=== PATIENT | female | born 1950 | race Two or more races ===

== ENCOUNTER 2017-04-19 13:25 | Emergency (ER) | payer BC, MEDICARE ==
[~2017-04-19] VITALS: Ht 152.4 cm; Wt 68.5 kg
[~2017-04-19 13:25] MED LIST: ALPR0.254 PO; ATOR1TAB PO; CARV25TA55 PO; DOCU-137 PO; FERR-20 PO; FURO20TA3 PO; LISI40TA PO; LOS50T PO; OMEP20CA74 OR
[2017-04-19 13:36] VITALS: BP 141/91
[2017-04-19] MEDS ORDERED: HYDROcodone-ACET 5/325MG TAB PO ONE (15:00)
[2017-04-19] MEDS ORDERED: KETOROLAC TROMETH 60MG/2ML VIAL IM ONE (15:00)
== END 2017-04-19 15:05 | disposition home or self-care (01) ==
LOC: ER 13:42
DX: S93.601A Unspecified sprain of right foot, initial encounter (principal); M19.90 Unspecified osteoarthritis, unspecified site; I10 Essential (primary) hypertension; I25.810 Atherosclerosis of coronary artery bypass graft(s) without angina pectoris; I25.2 Old myocardial infarction; W01.0XXA Fall on same level from slipping, tripping and stumbling without subsequent striking against object, initial encounter; Y93.89 Activity, other specified; Y99.8 Other external cause status; Y92.89 Other specified places as the place of occurrence of the external cause; Z88.6 Allergy status to analgesic agent; Z79.899 Other long term (current) drug therapy; Z87.440 Personal history of urinary (tract) infections; Z95.1 Presence of aortocoronary bypass graft
CPT/HCPCS: 73630; 99284; J1885

== ENCOUNTER 2018-02-14 08:25 | Emergency (ER) | payer MEDICARE, MEDICAID ==
[~2018-02-14] VITALS: Ht 152.4 cm; Wt 67.6 kg
[~2018-02-14 08:25] MED LIST changes: -DOCU-137 PO; +DOCU1CAP54 PO
[2018-02-14 09:01] VITALS: BP 130/91
[2018-02-14] MEDS ORDERED: ACETAMINOPHEN 325 MG TAB PO ONE (09:45)
== END 2018-02-14 09:52 | disposition home or self-care (01) ==
LOC: ER 08:25
DX: S01.01XA Laceration without foreign body of scalp, initial encounter (principal); I10 Essential (primary) hypertension; I25.810 Atherosclerosis of coronary artery bypass graft(s) without angina pectoris; M19.90 Unspecified osteoarthritis, unspecified site; I25.2 Old myocardial infarction; Z87.11 Personal history of peptic ulcer disease; Z87.440 Personal history of urinary (tract) infections; Z88.6 Allergy status to analgesic agent; W01.0XXA Fall on same level from slipping, tripping and stumbling without subsequent striking against object, initial encounter; Y93.01 Activity, walking, marching and hiking; Y92.098 Other place in other non-institutional residence as the place of occurrence of the external cause; Y99.8 Other external cause status
CPT/HCPCS: 12002; 70450

== ENCOUNTER 2018-02-17 18:48 | Emergency (ER) | payer MEDICARE, MEDICAID ==
[~2018-02-17] VITALS: Ht 152.4 cm; Wt 67.1 kg
[2018-02-17 19:58] VITALS: BP 147/81
[2018-02-17] MEDS ORDERED: ACETAMINOPHEN/CODEINE#3 (300/30mg) TAB PO ONE (20:45)
[2018-02-17] MEDS ORDERED: cefTRIAXone SOD 1,000 MG VL IM ONE (20:45)
[2018-02-17] MEDS ORDERED: LIDOCAINE 1% HCL (LOCAL ANESTH.) INJ 20ML MDV ONE (20:48)
== END 2018-02-17 21:15 | disposition home or self-care (01) ==
LOC: ER 18:50
DX: S01.01XD Laceration without foreign body of scalp, subsequent encounter (principal); M19.90 Unspecified osteoarthritis, unspecified site; I10 Essential (primary) hypertension; I25.2 Old myocardial infarction; I25.810 Atherosclerosis of coronary artery bypass graft(s) without angina pectoris; Z87.440 Personal history of urinary (tract) infections; Z87.11 Personal history of peptic ulcer disease; Z88.6 Allergy status to analgesic agent; W19.XXXD Unspecified fall, subsequent encounter
CPT/HCPCS: 96372; 99283; J0696; J2001

== ENCOUNTER 2025-02-12 17:52 | Inpatient (IN) | payer MEDICARE, MEDICAID ==
[~2025-02-12] VITALS: Ht 149.9 cm; Wt 61.3 kg
[~2025-02-12 17:52] MED LIST changes: +ATOR-47 PO; -ATOR1TAB PO; +DOCU1CAP46 PO; -DOCU1CAP54 PO; -FERR-20 PO; +FERR325T24 PO; -LISI40TA PO; +LISI40TA16 PO
[2025-02-12 18:58] LABS: Hematocrit 33.0 % (36.0-46.0); Hemoglobin 11.0 g/dL (12.2-16.2); Mean Corpuscular Hemoglobin 29.9 pg (28.0-32.0); Mean Corpuscular Volume 90.0 fL (80.0-100.0); Nucleated Red Blood Cells % 0.0 %
[2025-02-12 19:14] LABS: Alanine Aminotransferase 20 U/L (7-40); Albumin 4.1 g/dL (3.2-4.8); Alkaline Phosphatase 98 U/L (46-116); Anion Gap 10 (5-15); BUN/Creatinine Ratio 9.8 (10.0-20.0); Carbon Dioxide 22 mmol/L (20-31); Potassium 3.9 mmol/L (3.5-5.1); Total Protein 6.7 g/dL (5.7-8.2)
[2025-02-12 19:26] LABS: Bilirubin, Total 0.2 mg/dL (0.2-1.0); Blood Urea Nitrogen 27 mg/dL (9-23); Calcium 8.6 mg/dL (8.7-10.4); Chloride 113 mmol/L (98-107); Glucose 128 mg/dL (74-106); Sodium 145 mmol/L (136-145)
[2025-02-12] MEDS: HYDROcodone-ACET 5/325MG TAB PO ONE (20:16)
[2025-02-12] MEDS: SODIUM CHLORIDE 0.9% 1,000 ML IV ONE (20:30)
--- NOTE | 2025-02-12 20:31 | DVH ---
CLINICAL HISTORY: Left hip pain status post fall. TECHNIQUE: CT of the abdomen and pelvis was performed without intravenous contrast. This exam was performed according to our departmental dose optimization program. Up-to-date CT equipment and radiation dose reduction techniques are utilized as appropriate. CTDIvol: 8 mGy; DLP: 439.5 mGy-cm. COMPARISON: None available. FINDINGS: Lack of intravenous contrast limits assessment of the organs and vasculature. Within this limitation, the following assessment is made: Lower Chest: Lung Bases: Minimal dependent subsegmental atelectasis and/or scarring of the lung bases. Right lower lobe with a solid pulmonary nodule measuring 4 mm, which does not necessitate imaging follow-up based on Fleischner Society Pulmonary nodule recommendations. Severe 3-vessel calcific atherosclerosis of the coronary arteries. Abdomen and Pelvis: Liver: Unremarkable. Gallbladder: Unremarkable. Bile Ducts: Unremarkable. Pancreas: Unremarkable. Spleen: Unremarkable. Adrenal glands: Adrenal glands with hyperplasia without evidence of a discrete nodule. Kidneys/Ureters: Mild bilateral pelvocaliectasis without evidence of zain hydroureteronephrosis. Left kidney inferior pole with a punctate nonobstructing stone. No evidence of an obstructing urinary tract stone. Right kidney superior pole with a hyperdense cyst measuring 2.1 cm, which favors a hemorrhagic or proteinaceous cyst. Right inferior pole with a cyst measuring 3.5 cm. Left kidney inferior pole with a cyst measuring 2.3 cm with trace layering milk of calcium. Stomach: Unremarkable. Small and Large Bowel: Evidence of prior distal ileum partial resection with a patent anastomosis. No evidence of bowel obstruction or abnormal bowel wall thickening.. Appendix: Surgically absent. Vasculature: [id number] calcific atherosclerosis of the abdominal aorta and branches. No evidence of an abdominal aortic aneurysm. Lymph nodes: Unremarkable. Mesentery: No evidence of intraperitoneal free gas or liquid. Pelvic Organs: Unremarkable. Bladder: Unremarkable. Abdominal Wall: Unremarkable. Soft tissues: [id number] subcutaneous fat stranding along the left posterolateral hip. Bones: No acute or suspicious osseous abnormality. Degenerative related grade 1 anterolistheses of L3 on L4 and L4 on L5. Vkjpkevr-qk-bsogrh degenerative changes of the lumbar spine (with notable high-grade spinal canal stenoses from the L2-L3 through the L4-L5 levels). Mild degenerative changes of the sacroiliac joints. Focal benign-appearing lucent lesion of the right iliac bone measuring 2.1 cm Osseous structures are demineralized. Other: None. IMPRESSION: 1. No acute intra-abdominal or intrapelvic abnormality. 2. No acute fracture or dislocation of the left hip. 3. Mild bilateral pelvocaliectasis without evidence of zain hydroureteronephrosis. 4. Additional chronic findings as described.
--- NOTE | 2025-02-12 20:54 | ED.PDOC ---
Stan. trauma (HPI) HPI Comments HPI: Poor Historian. 74-year-old female brought in by ambulance from home status post mechanical fall from a standing position. Denies any head injury. Patient complains of left hip pain. Patient was unable to get up from the floor where she feels secondary to pain. Patient is not on blood thinners. Past Medical History: Coronary artery disease, diabetes, hypertension, hyperlipidemia, rectal cancer, chronic kidney disease stage 4 Past Surgical History: Colon resection, REVIEW OF SYSTEMS: CONSTITUTIONAL: Denies acute: fever, diaphoresis, chills, generalized weakness. HEAD: Denies acute: headache, photophobia Eyes: Denies acute: Double vision, vision loss, eye pain, eye discharge. EARS: Denies acute: tinnitus, hearing loss, ear discharge, ear pain, THROAT: Denies acute: sore throat, swelling, difficulty swallowing , pain with swallowing, change in voice. NECK: Denies acute: neck pain, neck swelling, stiff neck. HEART: Denies acute : chest pain, palpitations, LUNGS: Denies acute: SOB, wheezing, cough, hemoptysis ABDOMEN: Denies acute: abdominal pain, Nausea, Vomiting, diarrhea, melena , hematemesis, hematochezia SKIN: Denies acute: rash, redness, lesions, itchiness. EXTREMITIES: Denies acute: calf pain, numbness, tingling, weakness, Denies acute: Low back pain. Neuro: Denies acute: focal neurological deficit, motor or sensory focal neurological deficit, tremors, seizure like activity, confusion, dizziness, change in mental status, loss of bowel or bladder function, cauda equina like symptoms. : Denies acute: dysuria, hematuria, flank pain, increase in urinary frequency. PSYCH: Denies acute: hallucination, suicidal ideation, homicidal ideation. FEMALE: Denies acute: abnormal vaginal bleeding, foul odor, unusual discharge. PHYSICAL EXAM: General: ----moderate----acute distress, awake and alert. Head: normocephalic, atraumatic. No raccoon's eyes, no ralph sign. Neck: supple, trachea is midline, no swelling. Throat: Normal phonation. Eyes:, no erythema, no purulent discharge, no proptosis, no icterus. Heart: regular rate, regular rhythm, no significant murmur appreciated. Lungs: no apparent respiratory distress, Able to speak in full sentences. No wheezing, no rhonchi, no crackles. No stridors Clear to auscultation bilaterally. Abdomen: non tender to palpation, non distended, soft, no guarding, no rebound, + bowel sounds. Neuro: Awake, Alert, oriented to name, self, situation, follows commands GCS=15. Speech is normal. Skin: no petechia, no purpura, no cyanosis, non-pale, not jaundice. Lower extremities: --no - Pitting edema no deformity, no focal swelling, no calf TTP. Makes eye contact. moves all four extremities. Face: no apparent facial droop. Evaluation of the Area of complaint: Left posterior lateral hip focal tenderness to palpation with a minimal swelling. No apparent hematoma or redness. Patient is vascularly intact in the affected extremity. Sensory and motor are present. Pedal pulses are palpable. ED COURSE: DISCLAIMER: This medical document was created using an electronic medical record system with voice recognition software and computerized dictation system. Although this document has been carefully reviewed, there might still be some phonetic and typographical errors. Occasional wrong-word or "sound-alike" substitutions may have occurred due to the inherent limitations of voice recognition software. These areas are purely typographical due to imperfections of the software programs and do not reflect any compromise in the patient's medical care. Please read the chart carefully and recognize, using context, where these substitutions have occurred. Chief Complaint: Lower Extremity Time Seen by MD: 18:01 Primary Care Provider: ROBYN Reviewed notes: Allergies Allergies: Coded Allergies: Ibuprofen (Verified Adverse Reaction, Unknown, GI BLEED, 10/06/13) Home Meds Active Scripts Losartan Potassium (COZAAR TABLET) 50 Mg Tb, 1 TAB PO DAILY, #30 TAB 5 Refills Prov:SOILA MADDEN M.D. 10/09/13 Reported Medications Furosemide (Furosemide) 20 Mg Tab, 20 MG PO BIDD, MG 10/06/13 Alprazolam (Alprazolam) 0.25 Mg Tab, 1 TAB PO TID, #90 TAB 10/06/13 Lisinopril (Lisinopril) 40 Mg Tab, 40 MG PO DAILY for 30 Days, MG 10/06/13 Omeprazole (PRILOSEC) 20 Mg Cap, 40 MG OR DAILY, CAP 10/06/13 Carvedilol (Carvedilol) 25 Mg Tab, 1 TAB PO BID, #180 TAB 1 Refill 10/06/13 Atorvastatin Calcium (ATORVASTATIN CALCIUM) 80 Mg Tab, 1 TAB PO DAILY, #30 TAB 5 Refills 10/06/13 Ferrous Sulfate (Ferrous Sulfate) 325 Mg Tab, 325 MG PO BIDWM, MG 10/06/13 Docusate Sodium (DOCQLACE) 100 Mg Cap, 200 MG PO BID, CAP 10/06/13 Information Source: Patient Mode of Arrival: EMS Past Medical History PAST MEDICAL HISTORY: Arthritis, CAD, Cancer, HTN, NH, PUD, UTI'S Surgical History: CABG 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 TRUCK CATERER History Family History Family History: No family hx of Heart maye, No family hx of Lung maye Social History Smoker: Non-Smoker Alcohol: Denies ETOH Use Drugs: Denies Drug Use Lives In: Home X-Ray, Labs, Meds, VS Vital Signs Date Time Temp Pulse Resp B/P (MAP) Pulse Ox O2 Delivery O2 Flow Rate FiO2 02/12/25 18:45 97.9 71 14 168/64 (98) 95 97.9 02/12/25 17:58 98.8 72 18 185/87 100 98.8 Lab Test 02/12/25 18:50 Range/Units White Blood Count 9.6 4.4-10.8 10^3/uL Red Blood Count 3.67 L 4.0-5.20 10^6/uL Hemoglobin 11.0 L 12.2-16.2 g/dL Hematocrit 33.0 L 36.0-46.0 % Mean Corpuscular Volume 90.0 80.0-100.0 fL Mean Corpuscular Hemoglobin 29.9 28.0-32.0 pg Mean Corpuscular Hemoglobin Concent 33.3 32.0-36.0 g/dL Red Cell Distribution Width 14.8 H 11.8-14.3 % Platelet Count 203 140-450 10^3/uL Mean Platelet Volume 8.7 6.9-10.8 fL Neutrophils (%) (Auto) 83.5 H 37.0-80.0 % Lymphocytes (%) (Auto) 10.6 10.0-50.0 % Monocytes (%) (Auto) 5.0 0.0-12.0 % Eosinophils (%) (Auto) 0.4 0.0-7.0 % Basophils (%) (Auto) 0.5 0.0-2.0 % Neutrophils # (Auto) 8.0 1.6-8.6 10 ^3/uL Lymphocytes # (Auto) 1.0 0.4-5.4 10 ^3/uL Monocytes # (Auto) 0.5 0-1.3 10 ^3/uL Eosinophils # (Auto) 0 0-0.8 10 ^3/uL Basophils # (Auto) 0 0-0.2 10 ^3/uL Nucleated Red Blood Cells 0.0 % Sodium Level 145 136-145 mmol/L Potassium Level 3.9 3.5-5.1 mmol/L Chloride Level 113 H 98-107 mmol/L Carbon Dioxide Level 22 20-31 mmol/L Anion Gap 10 5-15 Blood Urea Nitrogen 27 H 9-23 mg/dL Creatinine 2.75 H 0.550-1.02 mg/dL Glomerular Filtration Rate Calc 18 >90 mL/min BUN/Creatinine Ratio 9.8 L 10.0-20.0 Serum Glucose 128 H 74-106 mg/dL Calcium Level 8.6 L 8.7-10.4 mg/dL Total Bilirubin 0.2 0.2-1.0 mg/dL Aspartate Amino Transferase (AST) 14 13-40 U/L Alanine Aminotransferase (ALT) 20 7-40 U/L Alkaline Phosphatase 98 46-116 U/L Total Protein 6.7 5.7-8.2 g/dL Albumin 4.1 3.2-4.8 g/dL Current Medications Medications (Trade) Dose Ordered Sig/Blake Route Start Time Stop Time Status Last Admin Sodium Chloride 1,000 ml @ 1,000 mls/hr Q1H ONCE IV 02/12/25 19:45 02/12/25 20:44 DC 02/12/25 20:30 Acetaminophen/ Hydrocodone Bitart ([place] 5/325MG Tab) 1 tab ONCE ONCE PO 02/12/25 19:45 02/12/25 19:46 DC 02/12/25 20:16 Departure 1 Departure Time of Disposition: 20:53 Impression: Primary Impression: Left hip pain Additional Impression: Fall BENEDICTO,KRYSTEN J DO Feb 12, 2025 20:54
[2025-02-12 21:06] VITALS: PULSE 73; RESP 15; O2SAT 97
[2025-02-12] MEDS: LABETALOL HCL 20 MG/4 ML VL IV ONE (21:30)
--- NOTE | 2025-02-12 22:36 | DVH ---
CLINICAL INDICATION: fall, pain TECHNIQUE: XYXY L FEMUR XRAY COMPARISON: None FINDINGS/IMPRESSION: : Impacted subcapital femoral neck fracture. Alignment is anatomic.
[2025-02-12] MEDS: fentaNYL CITRATE 100 MCG/2 ML VL IV ONE (23:21)
[2025-02-13] VITALS (7 sets, daily range): BP systolic 106–136; BP diastolic 72–83; PULSE 67–79; RESP 15–18; TEMP 97.6–98.1; O2SAT 93–97
--- NOTE | 2025-02-13 00:27 | ECG ---
[facility] Test Date: 2025-02-13 Test Time: 00:20:31 Pat Name: ALEXANDER RANDOLPH Department: [facility] ED Patient ID: [id number] Room: 0217 Gender: F Proofer Prepress: MALINAD : 1950 Requested By: DEANA STARR Order Number: [id number] Reading MD: Doron Gan Measurements Intervals [place] Rate: 64 P: 36 NM: 174 QRS: 39 QRSD: 96 T: 151 QT: 445 QTc: 459 Interpretive Statements Sinus rhythm LVH with secondary repolarization abnormality Electronically Signed On 02-13-2025 17:26:49 PST by Doron Gan Please click the below link to view image of tracing.
[2025-02-13] MEDS: MORPHINE SULFATE 4 MG/ML SYR/VIAL IV ONE (01:05)
[2025-02-13] MEDS ORDERED: MORPHINE SULFATE 4 MG/ML SYR/VIAL IV PRN (01:45)
[2025-02-13] MEDS: ACETAMINOPHEN 325 MG TAB PO SCH (02:28)
[2025-02-13] MEDS: ONDANSETRON HCL 4 MG/2 ML VIAL ONE (02:52)
[2025-02-13] MEDS: ONDANSETRON HCL 4 MG/2 ML VIAL IV ONE (02:53)
[2025-02-13] MEDS: LABETALOL HCL 20 MG/4 ML VL IV ONE (03:06)
--- NOTE | 2025-02-13 03:48 | DVH ---
INDICATION: KRISTAN TECHNIQUE: Multiple real-time sonographic images of the kidneys and bladder were obtained. COMPARISON: None FINDINGS: RIGHT kidney measures 11.5 cm in length with normal parenchymal echotexture and mildly diminished thickness. Complex appearing inferior pole cyst measures 3.9 x 3.5 x 3.0 cm. Moderate hydronephrosis. LEFT kidney measures 9.2 cm in length with normal parenchymal echotexture and mildly diminished thickness. Simple appearing inferior pole anechoic cyst measures 2.2 x 2.1 x 1.8 cm. 3 mm left inferior pole pelvocaliceal calculus. Moderate hydronephrosis. The urinary bladder is contracted, containing a Nunez catheter. IMPRESSION: 1. Moderate bilateral hydronephrosis and cortical thinning. 2. Complex appearing inferior pole right renal cyst measuring 3.9 cm. 3. Simple appearing left renal cyst. 4. Left inferior pole calculus.
--- NOTE | 2025-02-13 03:49 | DVHHPRES ---
History of Present Illness Resident Creating Document: GLADYS KOWALSKI RESIDENT History of Present Illness Adilene Dudley is a 74-year-old female with past medical history of CKD stage 4, rectal carcinoma in remission, diabetes mellitus, hypertension, CAD status post CABG, dyslipidemia presented to the hospital with complaints of left hip pain following mechanical fall. Patient was working in the garage when she slipped and fell forwards hitting her left hip on the ground. She felt a pop in the left hip, worsened pain and could not get up. Patient reports the pain to be 7/10 intensity, dull in quality and nonradiating. PMHx:CKD stage 4, rectal carcinoma in remission, diabetes mellitus, hypertension, CAD status post CABG, dyslipidemia PSHx: partial Colectomy Family history: coronary artery disease in father Social history: ex-smoker, 13 pack years. Lives with son Home medication: aspirin, atorvastatin, [place] Manjinder, sodium bicarbonate, ferrous sulfate, lisinopril, carvedilol, ranolazine, Farxiga, amlodipine, Lantus Allergic history: ibuprofen Review of Systems Review of Systems General: patient denies fever, fatigue, weaknes, sweating, any recent changes in appetite and weight HEENT: No headaches, visiual changes, hearing loss, tinnitus, nasal congestion and discharge, and sore throat. Cardiovascular: Denies chest pain, palpitations, dyspnea on exertion, orthopnea, or claudication. Respiratory: No cough, and wheezing. Gastrointestinal: Complaints of left hip pain Genitourinary: No dysuria, hematuria, discharge, frequency, urgency, nocturia, incontinence, and urinary retention. Endocrine: No heat or cold intolerance, polydipsia, polyuria, and polyphagia. Neurological: No dizziness, extremity weakness and numbness, tremors, gait disturbance, seizures, and memory impairment. Psychiatric: Denies depression, anxiety,or insomnia. Musculoskeletal: Denies neck pain, stiffness and swelling, back pain, muscle weakness, joint pain, stiffness, swelling, or limited range of motion. Skin: No rashes, itching, skin lesion, changes in hair, nail, skin texture and breast. Hematologic/Lymphatic: Denies easy bruising, bleeding tendencies, or lymph node enlargement. Allergies: Coded Allergies: Ibuprofen (Verified Adverse Reaction, Unknown, GI BLEED, 10/06/13) Medications Current Medications Medications Dose Ordered Sig/Blake Route Start Time Stop Time Status Last Admin Dose Admin Acetaminophen 650 mg Q6HR PO 02/13/25 01:15 02/13/25 02:28 650 MG Alprazolam 0.25 mg TID PO 02/13/25 06:00 Furosemide 20 mg BIDD PO 02/13/25 06:00 Nifedipine 90 mg DAILY PO 02/13/25 10:00 Carvedilol 12.5 mg Q12HR PO 02/13/25 10:00 Morphine Sulfate 4 mg Q4HR PRN IV 02/13/25 02:45 Acetaminophen/ Hydrocodone Bitart 1 tab Q6HP PRN PO 02/13/25 02:45 Insulin Glargine 20 units QAM SC 02/13/25 07:00 Aspirin 81 mg DAILY PO 02/13/25 10:00 Atorvastatin Calcium 80 mg HS PO 02/13/25 22:00 Sodium Bicarbonate 650 mg DAILY PO 02/13/25 10:00 Ferrous Sulfate 325 mg DAILY PO 02/13/25 10:00 Ranolazine 500 mg DAILY PO 02/13/25 10:00 Exam Vital Signs Vital Signs Date Time Temp Pulse Resp B/P (MAP) Pulse Ox O2 Delivery O2 Flow Rate FiO2 02/13/25 03:06 60 191/77 02/13/25 03:00 20 94 02/13/25 02:28 98.0 02/12/25 21:06 Room Air* 0 21 Exam General Appearance: Alert, Oriented X3, Cooperative, in acute distress HEENT: Atraumatic, PERRLA, EOMI, Mucous membrane moist/pink Respiratory: Clear to auscultation, Normal air movement Cardiovascular: Regular rate, Normal S1, Normal S2, No murmurs, no chest wall tenderness Abdominal: Normal bowel sounds, Soft, No tenderness, No hepatospenomegaly, No masses Extremities: tenderness in the left hip Skin: No rashes, No breakdown, No significant lesion Neuro: Normal gait, Normal speech, Strength at 5/5 X4 ext, Normal tone, Sensation intact, Cranial nerves 3-12 NL, Reflexes 2+ Psych/Mental Status: Mental status NL, Mood NL Labs/Xrays Labs Test 02/12/25 18:50 Range/Units White Blood Count 9.6 4.4-10.8 10^3/uL Red Blood Count 3.67 L 4.0-5.20 10^6/uL Hemoglobin 11.0 L 12.2-16.2 g/dL Hematocrit 33.0 L 36.0-46.0 % Mean Corpuscular Volume 90.0 80.0-100.0 fL Mean Corpuscular Hemoglobin 29.9 28.0-32.0 pg Mean Corpuscular Hemoglobin Concent 33.3 32.0-36.0 g/dL Red Cell Distribution Width 14.8 H 11.8-14.3 % Platelet Count 203 140-450 10^3/uL Mean Platelet Volume 8.7 6.9-10.8 fL Neutrophils (%) (Auto) 83.5 H 37.0-80.0 % Lymphocytes (%) (Auto) 10.6 10.0-50.0 % Monocytes (%) (Auto) 5.0 0.0-12.0 % Eosinophils (%) (Auto) 0.4 0.0-7.0 % Basophils (%) (Auto) 0.5 0.0-2.0 % Neutrophils # (Auto) 8.0 1.6-8.6 10 ^3/uL Lymphocytes # (Auto) 1.0 0.4-5.4 10 ^3/uL Monocytes # (Auto) 0.5 0-1.3 10 ^3/uL Eosinophils # (Auto) 0 0-0.8 10 ^3/uL Basophils # (Auto) 0 0-0.2 10 ^3/uL Nucleated Red Blood Cells 0.0 % Sodium Level 145 136-145 mmol/L Potassium Level 3.9 3.5-5.1 mmol/L Chloride Level 113 H 98-107 mmol/L Carbon Dioxide Level 22 20-31 mmol/L Anion Gap 10 5-15 Blood Urea Nitrogen 27 H 9-23 mg/dL Creatinine 2.75 H 0.550-1.02 mg/dL Glomerular Filtration Rate Calc 18 >90 mL/min BUN/Creatinine Ratio 9.8 L 10.0-20.0 Serum Glucose 128 H 74-106 mg/dL Calcium Level 8.6 L 8.7-10.4 mg/dL Total Bilirubin 0.2 0.2-1.0 mg/dL Aspartate Amino Transferase (AST) 14 13-40 U/L Alanine Aminotransferase (ALT) 20 7-40 U/L Alkaline Phosphatase 98 46-116 U/L Creatine Kinase 158 H 34-145 U/L Troponin I High Sensitivity 17 </=34 ng/L Total Protein 6.7 5.7-8.2 g/dL Albumin 4.1 3.2-4.8 g/dL SEPSIS Sepsis Screen Date sepsis recognized/suspect: Feb 12, 2025 Time Sepsis recognized/suspect: 1844 Recent Procedure: No On Antibiotic Therapy: No Respiratory Rate >20: No Heart Rate >90: No Temp<36 C (96.8 F) or >38.3 C: No SBP <90 or MAP <65 mmHG: No New Acute Mental Status Change: No Is the patient on CPAP, BIPAP,: No Physician Orders L Femur Xray (02/12/25 21:27) Urine Bacterial Culture (02/12/25 23:36) Admit (02/12/25 23:57) Oxygen By Nasal Cannula (02/12/25 23:57) Stat Ekg For Chest Pain (02/12/25 23:57) Notify Md Of Changes From Base (02/12/25 23:57) Emergency Dysrhythmia Protocol (02/12/25 23:57) Rhythm Strips Once Every Shift (02/12/25 23:57) Drug Screen (02/13/25 01:13) Urinalysis (02/13/25 01:13) Lipid Panel (02/13/25 01:13) Hemoglobin A1c (02/13/25 01:13) PTPTT (02/13/25 01:13) Chest Xray 1 View (02/13/25 01:13) B-Type Natriuretic Peptide (02/13/25 01:13) Echo 2d Mode Cardiac Dop (02/13/25 01:13) Acetaminophen Tablet (Tylenol Tablet) (02/13/25 01:15) Kidney (02/13/25 01:13) Urine Sodium (02/13/25 01:13) Urine Protein/Creatinine Ratio (02/13/25 ) Urine Protein (02/13/25 01:13) Alprazolam Tablet (Xanax Tablet) (02/13/25 06:00) Furosemide Tablet (Lasix Tablet) (02/13/25 06:00) Nifedipine Er (Procardia Xl (Time-Releas (02/13/25 10:00) Carvedilol Tablet (Coreg Tablet) (02/13/25 10:00) Morphine Sulfate Injection (02/13/25 02:45) Hydrocodone-Acet 10/325mg Tab ([place] 10/ (02/13/25 02:45) Insulin Lantus (Glargine) (Lantus) (02/13/25 07:00) Aspirin Enteric Coated Tablet (Ecotrin E (02/13/25 10:00) Atorvastatin (Lipitor) (02/13/25 22:00) Sodium Bicarb Tab (02/13/25 10:00) Ferrous Sulfate Tablet (02/13/25 10:00) Ranolazine (Ranexa Er) (02/13/25 10:00) Vital Signs Date Time Temp Pulse Resp B/P (MAP) Pulse Ox O2 Delivery O2 Flow Rate FiO2 02/13/25 03:06 60 191/77 02/13/25 03:00 63 20 136/62 (86) 94 02/13/25 02:49 204/90 02/13/25 02:28 98.0 02/13/25 02:25 205/81 02/13/25 01:05 68 17 209/95 02/13/25 01:00 68 17 209/95 (133) 96 02/13/25 00:20 64 02/12/25 23:48 62 02/12/25 23:21 187/74 02/12/25 23:05 69 187/74 02/12/25 23:00 65 24 187/74 (111) 98 02/12/25 21:30 73 198/76 02/12/25 21:06 73 15 97 Room Air* 0 21 02/12/25 21:01 98.3 73 18 198/76 (116) 97 98.3 Laboratory Tests Test 02/12/25 18:50 White Blood Count 9.6 10^3/uL (4.4-10.8) Medications Medications Dose Ordered Sig/Blake Route Start Time Stop Time Status Last Admin Dose Admin Acetaminophen 650 mg Q6HR PO 02/13/25 01:15 02/13/25 02:28 650 MG Acetaminophen/ Hydrocodone Bitart 1 tab ONCE ONCE PO 02/12/25 19:45 02/12/25 19:46 DC 02/12/25 20:16 1 TAB Amlodipine Besylate 10 mg ONCE ONCE PO 02/13/25 01:30 02/13/25 01:35 DC 02/13/25 02:25 10 MG Fentanyl Citrate 50 mcg ONCE ONCE IV 02/12/25 23:15 02/12/25 23:16 DC 02/12/25 23:21 50 MCG Labetalol HCl 5 mg ONCE ONCE IV 02/12/25 21:15 02/12/25 21:17 DC 02/12/25 21:30 5 MG Labetalol HCl 40 mg ONCE ONCE IV 02/13/25 02:45 02/13/25 02:46 DC 02/13/25 03:06 40 MG Morphine Sulfate 4 mg ONCE ONCE IV 02/13/25 01:00 02/13/25 01:01 DC 02/13/25 01:05 4 MG Nifedipine 90 mg ONCE ONCE PO 02/13/25 02:30 02/13/25 02:33 DC 02/13/25 02:49 90 MG Ondansetron HCl 4 mg ONCE ONCE IV 02/13/25 02:45 02/13/25 02:46 DC 02/13/25 02:53 4 MG Sodium Chloride 1,000 ml @ 1,000 mls/hr Q1H ONCE IV 02/12/25 19:45 02/12/25 20:44 DC 02/12/25 20:30 1,000 MLS/HR Assessment/Plan Assessment/Plan Assessment and plan Left femoral neck fracture Intractable left hip pain due to above left femur x-ray: Impacted subcapital femoral neck fracture. pain management KRISTAN on CKD due to VMN Stage 4 CKD Anemia due to CKD Creatinine 2.75, GFR 18 Renal ultrasound Urine sodium, urine creatinine, urine protein creatinine ratio Nephro consult as per primary team Hypertensive emergency Blood pressure 210/95 Nifedipine, carvedilol Obesity grade 1 Lifestyle modification type 2 diabetes mellitus Follow up blood glucose levels HbA1c Insulin Lantus Dyslipidemia Continue atorvastatin Follow lipid panel History of coronary artery disease EKG Troponin negative Follow up with PCP on discharge PUD prophylaxis: not needed DVT prophylaxis: None due to possible procedure Barriers to discharge: Medical diagnosis and managment in progress. Patient lives with family. Independent for ADL. PCP: Dr. Lozano Specialist Relevent To Admission: Orthopedics Case discussed with Dr. Temple. Code Status: Full Code. Complex patient care discussion needed. Spend total 35 minutes for bedside assessment, case discussion and management. Plan discussed with: Patient My Orders Orders - GLADYS KOWALSKI RESIDENT Procedure Category Date Status Time Drug Screen LAB 02/13/25 Logged 01:13 Urinalysis LAB 02/13/25 Uncollected 01:13 Lipid Panel LAB 02/13/25 Logged 01:13 Hemoglobin A1c LAB 02/13/25 Logged 01:13 PTPTT LAB 02/13/25 Logged 01:13 Chest Xray 1 View XY 02/13/25 Logged 01:13 B-Type Natriuretic LAB 02/13/25 Logged Peptide 01:13 Echo 2d Mode Cardiac US 02/13/25 Logged DOP 01:13 Acetaminophen Tablet PHA 02/13/25 In Process (Tylenol Tablet) 01:15 Kidney US 02/13/25 Resulted 01:13 Urine Sodium LAB 02/13/25 Logged 01:13 Urine LAB 02/13/25 Logged Protein/Creatinine Urine Protein LAB 02/13/25 Logged 01:13 Alprazolam Tablet PHA 02/13/25 In Process (Xanax Tablet) 06:00 Furosemide Tablet PHA 02/13/25 In Process (Lasix Tablet) 06:00 Nifedipine Er PHA 02/13/25 In Process (Procardia Xl 10:00 Insulin Lantus PHA 02/13/25 In Process (Glargine) (Lantus) 07:00 Aspirin Enteric PHA 02/13/25 In Process Coated Tablet 10:00 Atorvastatin (Lipitor) PHA 02/13/25 In Process 22:00 Sodium Bicarb Tab PHA 02/13/25 In Process 10:00 Ferrous Sulfate Tablet PHA 02/13/25 In Process 10:00 Ranolazine (Ranexa Er) PHA 02/13/25 In Process 10:00 Visit Coding STANDARD RES Billing Provider: GUSTAVO TEMPLE MD Date of Service if different f: Feb 12, 2025 Common Visit Codes: 62435-MEDDWHD INP/OBS CARE (HIGH) Secondary Visit Codes: 30803-MVOJDWPH CARE PLAN 30 MINUTES GLADYS KOWALSKI RESIDENT Feb 13, 2025 03:49 GUSTAVO TEMPLE MD Feb 13, 2025 14:46
[2025-02-13] MEDS: GABAPENTIN 300 MG CAP PO ONE (05:16)
[2025-02-13] MEDS: MORPHINE SULFATE 4 MG/ML SYR/VIAL IV PRN (05:18)
[2025-02-13 05:44] LABS: Triglycerides 122 mg/dL (< 150)
[2025-02-13 05:46] LABS: Cholesterol 129 mg/dL (< 200); HDL Cholesterol 50 mg/dL (40-59)
[2025-02-13 05:50] LABS: INR 1.09 (0.9-1.15); Partial Thromboplastin Time 25.9 SEC (24.5-34.5); Prothrombin Time 11.5 sec (9.3-11.8)
[2025-02-13] MEDS: FUROSEMIDE 20 MG TAB PO SCH (06:38)
--- NOTE | 2025-02-13 06:51 | DVH ---
CHEST RADIOGRAPH INDICATION: preop TECHNIQUE: Single frontal view of the chest was obtained COMPARISON: None FINDINGS: Lines and Tubes: None Lungs: Clear Pleura: No effusion. No pneumothorax. Cardiomediastinal contours: Unremarkable status post median sternotomy. Bones: Unremarkable IMPRESSION: 1. No acute cardiopulmonary disease.
[2025-02-13] MEDS: INSULIN LANTUS (GLARGINE) 1 /0.01ml (100units/ml) SC SCH (08:34)
[2025-02-13] MEDS: ALPRAZolam 0.25 MG TAB PO SCH (08:34)
[2025-02-13] MEDS ORDERED: CARVEDILOL 3.125 MG TAB PO SCH (10:00)
[2025-02-13] MEDS: CARVEDILOL 3.125 MG TAB PO SCH (10:00)
[2025-02-13] MEDS: SODIUM BICARBONATE 650 MG TAB PO SCH (10:49)
[2025-02-13] MEDS: FERROUS SULFATE 325mg EC TAB PO SCH (10:49)
[2025-02-13] MEDS: ASPirin-EC 81 mg tab PO SCH (10:50)
[2025-02-13] MEDS: RANOLAZINE ER 500 MG TAB PO SCH (10:51)
--- NOTE | 2025-02-13 11:56 | DVHPNRES ---
Progress Note Date Seen: Feb 13, 2025 Resident Creating Document: MICHAEL PEDERSON RESIDENT Medical Necessity Reason Pt with a Central, PICC or Fol: Yes Subjective Review of Systems This is a 74 year old female with past medical history of CKD stage 4, rectal carcinoma status post treatment(radiation, surgery, chemotherapy), dm 2, HTN CAD status post CABG in 2009 [facility], HLD seizure came to ER with a complaint of left hip pain following mechanical fall. Patient stated she went to her garage tripped on the floor landed on left side of the body and suddenly started vein which is 9/10 intensity, localized, dull in consistency, nonradiating, aggravated on movement, no relieving factors. Evaluation in ER, patient having left hip pain and Nunez catheter placed. Currently denies any fever, SOB, chest pain, headache, abdominal pain, dysuria or any focal weakness. PMHx:CKD stage 4, rectal carcinoma in remission, diabetes mellitus, hypertension, CAD status post CABG, dyslipidemia PSHx: CABG 2009 Family history: coronary artery disease in father Social history: ex-smoker, 13 pack years. Lives with son Allergic history: ibuprofen PCP: Dr. Lozano Home medication: aspirin, atorvastatin, Delta Manjinder, sodium bicarbonate, ferrous sulfate, lisinopril, carvedilol, ranolazine, Farxiga, amlodipine, Lantus Objective vital signs Vital Sign Date Time Temp Pulse Resp B/P (MAP) Pulse Ox O2 Delivery O2 Flow Rate FiO2 02/13/25 10:52 64 14 133/59 02/13/25 08:00 95 02/13/25 08:00 Room Air* 0 21 02/13/25 05:00 98.5 98.5 medications Current Medications Medications Dose Ordered Sig/Blake Route Start Time Stop Time Status Last Admin Dose Admin Acetaminophen 650 mg Q6HR PO 02/13/25 01:15 02/13/25 08:28 650 MG Alprazolam 0.25 mg TID PO 02/13/25 06:00 Furosemide 20 mg BIDD PO 02/13/25 06:00 Nifedipine 90 mg DAILY PO 02/13/25 10:00 Carvedilol 12.5 mg Q12HR PO 02/13/25 10:00 Morphine Sulfate 4 mg Q4HR PRN IV 02/13/25 02:45 02/13/25 10:20 4 MG Acetaminophen/ Hydrocodone Bitart 1 tab Q6HP PRN PO 02/13/25 02:45 Insulin Glargine 20 units QAM SC 02/13/25 07:00 Aspirin 81 mg DAILY PO 02/13/25 10:00 Atorvastatin Calcium 80 mg HS PO 02/13/25 22:00 Sodium Bicarbonate 650 mg DAILY PO 02/13/25 10:00 Ferrous Sulfate 325 mg DAILY PO 02/13/25 10:00 Ranolazine 500 mg DAILY PO 02/13/25 10:00 Examination General Appearance: Alert, Oriented X3, Cooperative, in acute distress HEENT: Atraumatic, PERRLA, EOMI, Mucous membrane moist/pink Respiratory: Clear to auscultation, Normal air movement Cardiovascular: Regular rate, Normal S1, Normal S2, No murmurs, no chest wall tenderness Abdominal: Normal bowel sounds, Soft, No tenderness, No hepatospenomegaly, F oley catheter in place. Extremities: tenderness in the left hip Skin: No rashes, No breakdown, No significant lesion Neuro: Normal gait, Normal speech, Strength at 5/5 X4 ext, Normal tone, Sensation intact, Cranial nerves 3-12 NL, Reflexes 2+ Psych/Mental Status: Mental status NL, Mood NL laboratory and microbiology Laboratory Tests 02/12/25 18:50 Test 02/12/25 18:50 Range/Units Serum Glucose 128 H 74-106 mg/dL Problem List/Assessment/Plan Problem List/Assessment/Plan Impacted subcapital femoral neck fracture Intractable left hip pain due to above History of fall left femur x-ray: Impacted subcapital femoral neck fracture. pain management Ortho consult CT left femur ordered. KRISTAN on CKD due to VMN Stage 4 CKD Anemia due to CKD Bilateral hydronephrosis Likely complex cyst right kidney measuring 3.9 cm Left renal calculus Left renal simple cyst Creatinine 2.75, GFR 18 Renal ultrasound : Moderate bilateral hydronephrosis with cortical thinning, bilateral renal cyst, left inferior pole calculus. CT abdomen: Mild bilateral pelvocaliectasis without evidence of zain hydroureteronephrosis. Urine sodium, urine creatinine, urine protein creatinine ratio Nephro consult Hypertensive emergency Blood pressure 210/95 Nifedipine, carvedilol BP monitor Target blood pressure less than 130/80 Type 2 diabetes mellitus Follow up blood glucose levels HbA1c 6.2 Insulin Lantus Dyslipidemia Continue atorvastatin Follow lipid panel History of coronary artery disease s/p CABG 2009 Hypertensive heart disease possible systolic/dilated systolic heart failure Troponin 17 BNP 336.89 Ranolazine Nifedipine Furosemide carvedilol Atorvastatin Aspirin Nitroglycerin sublingually as needed History of colorectal cancer on remission. PUD prophylaxis: not needed DVT prophylaxis: SCD Barriers to discharge: Medical diagnosis and managment in progress. Patient lives with family. Independent for ADL. Goals of care decision. More than 21 minute spent with patient. Spoke NOK(sister-Kacey) updated current condition and treatment plan. Case discussed with Dr. Temple. Plan discussed with: Patient, Other (Nurse) My Orders My Orders Orders - MICHAEL PEDERSON Procedure Category Date Status Time * Orthopedic Consult CONS 02/13/25 Transmitted 11:10 Visit Coding STANDARD RES Billing Provider: GUSTAVO TEMPLE MD Date of Service if different f: Feb 13, 2025 Common Visit Codes: [id number] INP/OBS CARE (HIGH) Secondary Visit Codes: 99997-[id number] CARE PLAN 30 MINUTES MICHAEL PEDERSON RESIDENT Feb 13, 2025 11:56
[2025-02-13 15:52] LABS: Protein, Urine 56.4 mg/dL (1-14); Protein, Urine 56.9 mg/dL (1-14)
[2025-02-13 16:02] LABS: Sodium 145 mmol/L (136-145)
[2025-02-13 16:03] LABS: Amphetamine Screen, Urine Neg (NEGATIVE); Barbiturate Scree,Urine Neg (NEGATIVE); Benzodiazephine Screen, Urine Neg (NEGATIVE); Cannabinoid Screen, Urine Neg (NEGATIVE); Cocaine Screen, Urine Neg (NEGATIVE); Opiate Scree,Urine Neg (NEGATIVE)
[2025-02-13 16:03] LABS: Anion Gap 11 (5-15)
[2025-02-13 16:04] LABS: Calcium 8.0 mg/dL (8.7-10.4); Carbon Dioxide 19 mmol/L (20-31); Chloride 115 mmol/L (98-107)
[2025-02-13 16:05] LABS: Potassium 4.0 mmol/L (3.5-5.1)
[2025-02-13 16:11] LABS: BUN/Creatinine Ratio 9.4 (10.0-20.0); Blood Urea Nitrogen 22 mg/dL (9-23); Glucose 125 mg/dL (74-106)
[2025-02-13 16:54] LABS: Phencyclidine Screen, Urine Neg (NEGATIVE)
--- NOTE | 2025-02-13 17:38 | DVH ---
EXAM: CT CT L FEMUR WO CONTRAST INDICATION: X-ray shows Left Femoral neck fracture. TECHNIQUE: Axial images of left femur without contrast have been obtained along with coronal and sagittal reformatted images. All CT scans at this facility use dose modulation, iterative reconstruction, and/or weight based dosing when appropriate to reduce radiation dose to as low as reasonably achievable. COMPARISON: XY L FEMUR XRAY on DOS: 02/12/25 FINDINGS: BONES: Impacted nondisplaced left femoral subcapital neck fracture without significant displacement. Degenerative change of the left knee. Vascular calcifications. [id number] degenerative change of the pubic symphysis. Mild suspected degenerative change with chondrocalcinosis of the left hip. MUSCLES: No abnormal attenuation. JOINT SPACES: Chondrocalcinosis of the medial and lateral menisci of the left knee with [id number] medial weight-bearing compartment joint space loss. TENDONS/LIGAMENTS: Quadriceps insertional enthesophyte. OTHER: Nunez catheter in place. Postsurgical changes in the lower rectum. Fbtd-yw-jwdgckod stool burden. Subcutaneous adipose tissue edema likely compatible with soft tissue contusion of the left lateral thigh IMPRESSION: 1. Impacted nondisplaced left femoral subcapital neck fracture. 2. Degenerative change of the left knee.
[2025-02-13] MEDS: ATORVASTATIN 20 MG TAB PO SCH (21:28)
[2025-02-14] VITALS (23 sets, daily range): BP systolic 96–163; BP diastolic 61–90; PULSE 61–102; RESP 12–92; TEMP 96.8–97.9; O2SAT 92–100
[2025-02-14 05:58] LABS: Hematocrit 34.7 % (36.0-46.0); Hemoglobin 11.6 g/dL (12.2-16.2); Mean Corpuscular Hemoglobin 30.3 pg (28.0-32.0); Mean Corpuscular Volume 90.9 fL (80.0-100.0); Nucleated Red Blood Cells % 0.0 %
[2025-02-14 06:22] LABS: Anion Gap 10 (5-15); Carbon Dioxide 20 mmol/L (20-31); Potassium 4.0 mmol/L (3.5-5.1); Sodium 141 mmol/L (136-145)
[2025-02-14 06:23] LABS: Calcium 8.8 mg/dL (8.7-10.4)
[2025-02-14 06:28] LABS: BUN/Creatinine Ratio 10.0 (10.0-20.0)
[2025-02-14 06:32] LABS: Blood Urea Nitrogen 26 mg/dL (9-23); Chloride 111 mmol/L (98-107); Glucose 135 mg/dL (74-106)
--- NOTE | 2025-02-14 07:44 | DVHINCON2 ---
Date of service: Feb 13, 2025 Reason for Consultation Left hip fracture History of Present Illness 74 yo F with mechanical trip and fall onto left side. Immediate pain/inability to bear weight on left leg. No cp/sob/abd pain/nausea/vomiting. Past Medical History PMHx:CKD stage 4, rectal carcinoma in remission, diabetes mellitus, hypertension, CAD status post CABG, dyslipidemia PSHx: partial Colectomy Family history: coronary artery disease in father Social history: ex-smoker, 13 pack years. Lives with son Home medication: aspirin, atorvastatin, Peterson Manjinder, sodium bicarbonate, ferrous sulfate, lisinopril, carvedilol, ranolazine, Farxiga, amlodipine, Lantus Allergic history: ibuprofen Family History: Patient reports no known family medical history. Allergies: Coded Allergies: Ibuprofen (Verified Adverse Reaction, Unknown, GI BLEED, 10/06/13) Home Meds Active Scripts Losartan Potassium (COZAAR TABLET) 50 Mg Tb, 1 TAB PO DAILY, #30 TAB 5 Refills Prov:SOILA MADDEN M.D. 10/09/13 Reported Medications Furosemide (Furosemide) 20 Mg Tab, 20 MG PO BIDD, MG 10/06/13 Alprazolam (Alprazolam) 0.25 Mg Tab, 1 TAB PO TID, #90 TAB 10/06/13 Lisinopril (Lisinopril) 40 Mg Tab, 40 MG PO DAILY for 30 Days, MG 10/06/13 Omeprazole (PRILOSEC) 20 Mg Cap, 40 MG OR DAILY, CAP 10/06/13 Carvedilol (Carvedilol) 25 Mg Tab, 1 TAB PO BID, #180 TAB 1 Refill 10/06/13 Atorvastatin Calcium (ATORVASTATIN CALCIUM) 80 Mg Tab, 1 TAB PO DAILY, #30 TAB 5 Refills 10/06/13 Ferrous Sulfate (Ferrous Sulfate) 325 Mg Tab, 325 MG PO BIDWM, MG 10/06/13 Docusate Sodium (DOCQLACE) 100 Mg Cap, 200 MG PO BID, CAP 10/06/13 Current Medications Current Medications Medications (Trade) Dose Ordered Sig/Blake Route PRN Reason Start Time Stop Time Status Last Admin Amlodipine Besylate (Norvasc Tablet) 10 mg DAILY PO 02/13/25 10:00 02/13/25 02:29 DC Carvedilol (Coreg Tablet) 6.25 mg Q12HR PO 02/13/25 10:00 02/13/25 02:41 DC Nifedipine (Procardia Xl (Time-Release)) 90 mg DAILY PO 02/13/25 10:00 Carvedilol (Coreg Tablet) 12.5 mg Q12HR PO 02/13/25 10:00 02/13/25 21:30 Aspirin (Ecotrin Enteric Coated Tablet) 81 mg DAILY PO 02/13/25 10:00 Atorvastatin Calcium (Lipitor) 80 mg HS PO 02/13/25 22:00 02/13/25 21:28 Sodium Bicarbonate 650 mg DAILY PO 02/13/25 10:00 Ferrous Sulfate 325 mg DAILY PO 02/13/25 10:00 Ranolazine (Ranexa ER) 500 mg DAILY PO 02/13/25 10:00 Review of Systems 10 point ROS as per HPI Vital Signs Vital Signs Date Time Temp Pulse Resp B/P (MAP) Pulse Ox O2 Delivery O2 Flow Rate FiO2 02/14/25 05:00 97.4 17 122/69 (86) 99 97.4 02/14/25 01:00 74 02/13/25 20:00 Room Air* 0 21 Physical Exam NAD LLE: No shortening note +ta/gs/ehl/fhl foot wwp Labs/Diagnostic Data Labs Test 02/14/25 05:15 02/13/25 08:21 02/13/25 05:07 02/12/25 23:36 Range/Units White Blood Count 7.3 4.4-10.8 10^3/uL Red Blood Count 3.82 L 4.0-5.20 10^6/uL Hemoglobin 11.6 L 12.2-16.2 g/dL Hematocrit 34.7 L 36.0-46.0 % Mean Corpuscular Volume 90.9 80.0-100.0 fL Mean Corpuscular Hemoglobin 30.3 28.0-32.0 pg Mean Corpuscular Hemoglobin Concent 33.3 32.0-36.0 g/dL Red Cell Distribution Width 15.3 H 11.8-14.3 % Platelet Count 197 140-450 10^3/uL Mean Platelet Volume 9.3 6.9-10.8 fL Neutrophils (%) (Auto) 83.7 H 37.0-80.0 % Lymphocytes (%) (Auto) 10.0 10.0-50.0 % Monocytes (%) (Auto) 4.3 0.0-12.0 % Eosinophils (%) (Auto) 1.9 0.0-7.0 % Basophils (%) (Auto) 0.1 0.0-2.0 % Neutrophils # (Auto) 6.1 1.6-8.6 10 ^3/uL Lymphocytes # (Auto) 0.7 0.4-5.4 10 ^3/uL Monocytes # (Auto) 0.3 0-1.3 10 ^3/uL Eosinophils # (Auto) 0.1 0-0.8 10 ^3/uL Basophils # (Auto) 0 0-0.2 10 ^3/uL Nucleated Red Blood Cells 0.0 % Sodium Level 141 136-145 mmol/L Potassium Level 4.0 3.5-5.1 mmol/L Chloride Level 111 H 98-107 mmol/L Carbon Dioxide Level 20 20-31 mmol/L Anion Gap 10 5-15 Blood Urea Nitrogen 26 H 9-23 mg/dL Creatinine 2.61 H 0.550-1.02 mg/dL Glomerular Filtration Rate Calc 19 >90 mL/min BUN/Creatinine Ratio 10.0 10.0-20.0 Serum Glucose 135 H 74-106 mg/dL Calcium Level 8.8 8.7-10.4 mg/dL POC Glucose 99 70-106 mg/dl Prothrombin Time 11.5 9.3-11.8 sec Prothrombin Time INR 1.09 0.9-1.15 Activated Partial Thromboplast Time 25.9 24.5-34.5 SEC Hemoglobin A1c 6.2 H <5.7 % A1C B-Type Natriuretic Peptide 336.89 0-100 pg/mL Triglycerides Level 122 < 150 mg/dL Cholesterol Level 129 < 200 mg/dL LDL Cholesterol 61 < 100 mg/dL HDL Cholesterol 50 40-59 mg/dL Urine Creatinine 22.78 L 30.0-125.0 mg/dL Urine Protein/Creatinine Ratio 2.50 Urine Sodium 131 40-220 mmol/L Urine Total Protein 56.9 H 1-14 mg/dL Urine Opiates Screen Neg NEGATIVE Urine Fentanyl Screen Neg NEGATIVE Urine Barbiturates Screen Neg NEGATIVE Urine Phencyclidine Screen Neg NEGATIVE Urine Amphetamines Screen Neg NEGATIVE Urine Benzodiazepines Screen Neg NEGATIVE Urine Cocaine Screen Neg NEGATIVE Urine Cannabinoids Screen Neg NEGATIVE Test 02/12/25 18:50 Range/Units Total Bilirubin 0.2 0.2-1.0 mg/dL Aspartate Amino Transferase (AST) 14 13-40 U/L Alanine Aminotransferase (ALT) 20 7-40 U/L Alkaline Phosphatase 98 46-116 U/L Creatine Kinase 158 H 34-145 U/L Troponin I High Sensitivity 17 </=34 ng/L Total Protein 6.7 5.7-8.2 g/dL Albumin 4.1 3.2-4.8 g/dL Plan/Recommendation 74 yo F sp mechanical trip and fall with a nondisplaced left femoral neck fracture 1. I had a long and thorough discussion with the patient regarding her condition. Risks benefits options and alternatives reviewed in depth. Risks include but not exclusive to bleeding infection nerve injury hardware failure nonunion malunion chronic pain blood clots cardiac and pulmonary complications amputation and . Patient has multiple medical issues and is HIGH risk. She understands the morbidity and mortality of this injury and undergoing anesthesia due to her comorbidities. Patient understands fracture may not heal and she would need hip replacement surgery if that happens. She wishes to proceed with surgery 2. plan for open reduction internal fixation of left hip fracture 3. npo/ivf 4. pain control Plan discussed with: Patient SALAZAR DE LA CRUZ MD Feb 14, 2025 07:44
[2025-02-14] MEDS ORDERED: MIDAZOLAM HCL 2MG/2ML 2ml VIAL (1mg/ml) ONE (08:33)
[2025-02-14] MEDS ORDERED: fentaNYL CITRATE 100 MCG/2 ML VL ONE (08:33)
[2025-02-14] MEDS ORDERED: ONDANSETRON HCL 4 MG/2 ML VIAL ONE (08:33)
[2025-02-14] MEDS ORDERED: KETAMINE 50mg/ML 1ml syringe ONE (08:33)
[2025-02-14] MEDS ORDERED: GLYCOPYRROLATE 0.2 MG/ML 1ML VIAL ONE (08:33)
[2025-02-14] MEDS ORDERED: MORPHINE SULF PF 5 MG/10 ML VIAL ONE (08:33)
[2025-02-14] MEDS ORDERED: BUPIVACAINE/DEXTROSE MPF 0.75% 2 ML AMP IT ONE (08:33)
[2025-02-14] MEDS: ceFAZolin 2 GM/D5W50ml 50 ML IV ONE (08:35)
--- NOTE | 2025-02-14 08:35 | DVHOP2 ---
Operative Report - 2 Report Details Date: 02/14/25 Preop Diagnosis: left femoral neck fracture Postop Diagnosis: left femoral neck fracture Surgeon: Elmer Claudio MD Corporate Operations Compliance Manager: Bob MONROY Anesthesiologist: Wesly SUGGS Anesthesia: Regional Implant: [facility] Hip fracture system Consent: The patient was informed of the risks and benefits of the procedure. These include but are not limited to complications of anesthesia, postoperative infection, incomplete relief of symptoms, recurrence of symptoms, damage to blood vessels, nerves and tendons, deep venous thrombosis, pulmonary embolism and possible need for repeat surgery in the future. Estimated Blood Loss: 50 cc Name of Procedure Performed 1. Open reduction internal fixation of left hip femoral neck fracture 2. Intraop fluoroscopy Procedure Details Procedure Details: The patient was brought to the operating room and placed supine on a fracture table. The left lower extremity was prepped and draped in the usual sterile fashion. Appropriate anesthesia was administered. Closed reduction of the left femoral neck fracture was performed under fluoroscopic guidance. Traction and gentle manipulation were applied to achieve anatomic alignment, confirmed on both AP and lateral fluoroscopic views. Once satisfactory reduction was obtained, the lateral aspect of the proximal femur was identified and marked. Small stab incisions were made at the planned pin entry sites. Under fluoroscopic guidance, three parallel guide wires were inserted percutaneously across the femoral neck fracture into the femoral head, ensuring appropriate position and spread on both AP and lateral views. After confirming satisfactory guide wire placement, cannulated screws were measured, drilled, and inserted over the guide wires to achieve stable fixation. Final fluoroscopic images confirmed anatomic reduction and appropriate hardware placement, with no evidence of intra-articular penetration. The wounds were irrigated and closed with interrupted nylon sutures. Sterile dressings were applied. The patient tolerated the procedure well and was transferred to the recovery area in stable condition. Condition Good Disposition Still a Patient ELMER CLAUDIO MD Feb 14, 2025 08:35
[2025-02-14] MEDS: ACCU-CHEK COMFORT CURVE STRIP VI ONE (09:45)
[2025-02-14] MEDS ORDERED: diphenhydrAMINE HCL 50 MG/1 ML VL IV PRN (09:45)
[2025-02-14] MEDS ORDERED: ACETAMINOPHEN IV 1000 MG/100ML (10MG/ML) IV PRN (09:45)
[2025-02-14] MEDS ORDERED: ONDANSETRON HCL 4 MG/2 ML VIAL IV PRN ×2 (09:45)
[2025-02-14] MEDS ORDERED: NALOXONE HCL 0.4 MG/ML VIAL IV PRN (09:45)
--- NOTE | 2025-02-14 11:37 | DVH ---
XY C ARM FLUOROSCOPY UP TO 60MIN Indication: LEFT HIP ORIF Comparison: None FINDINGS: C-arm fluoroscopic guidance was used. This report is rendered for records purposes only. A radiologist was not present for this procedure. No image submitted. Fluoroscopy Time/Exposure/Number of Images: 56.6 seconds IMPRESSION: FLUOROSCOPY. PLEASE REFER TO THE DEDICATED PROCEDURAL/OPERATIVE REPORT FOR FINDINGS.
--- NOTE | 2025-02-14 11:47 | DVH ---
C-ARM FLUOROSCOPY: PROCEDURE: Left hip ORIF FLUOROSCOPY TIME: 56.6 seconds Air Kerma: 6.2 mgy FINDINGS: Spot intraoperative C arm radiographs demonstrating left hip ORIF. IMPRESSION: Please refer to surgical report for detailed findings.
[2025-02-14] MEDS: ceFAZolin 1GM/50ML 50 ML IV SCH (15:37)
--- NOTE | 2025-02-14 17:24 | DVHSR ---
APPROVED REPORT EXAM: Two-dimensional and M-mode echocardiogram with Doppler and color Doppler. Blood Pressure: 130/67 mmHg INDICATION Hypertension Dyspnea to rule out structural heart disease RISK FACTORS Height: 63, Weight: 176 DIMENSIONS LVDd (3.8-5.7cm) LA (2D) 4.8 (1.9-4.0cm) Aortic Root 3.3 (2.0-3.7cm) LVDs (2.5-4.0cm) LA (MM) (1.9-4.0cm) Aortic Cusp Exc 1.2 (1.5-2.0cm) EF (%) 68.0 (55-70%) Rt. Atrium 3.6 (1.9-4.0cm) Asc. Aorta cm Mitral Valve Mitral Mitral Stenosis E wave 0.61m/s MV Mean GR. mmHg A wave 0.80m/s MV Peak GR. 59mmHg E/A ratio 0.8 2D MVA cm2 DECEL Time 256ms PRESS 1/2 Time ms Aortic Valve Aortic Valve Aortic Stenosis V1 1.05m/s AO Mean GR. 5mmHg V2 1.52m/s AO Peak GR. 9mmHg LVOT Diameter 1.8 (1.8-2.4cm) Doppler EDE 1.76cm2 Pulmonic Valve V2 0.99m/s Other Information Quality : Technically Limited Rhythm : Conclusion LVEF 60-65%, mild LVH, mild diastolic dysfunction Right ventricle size and funciton normal Left atrium mildly dilated
--- NOTE | 2025-02-14 17:25 | DVHPNRES ---
Progress Note Date Seen: Feb 14, 2025 Resident Creating Document: MICHAEL PEDERSON RESIDENT Medical Necessity Reason Pt with a Central, PICC or Fol: Yes Subjective Review of Systems This is a 74 year old female with past medical history of CKD stage 4, rectal carcinoma status post treatment(radiation, surgery, chemotherapy), dm 2, HTN CAD status post CABG in 2009 [facility], HLD seizure came to ER with a complaint of left hip pain following mechanical fall. Patient stated she went to her garage tripped on the floor landed on left side of the body and suddenly started vein which is 9/10 intensity, localized, dull in consistency, nonradiating, aggravated on movement, no relieving factors. Evaluation in ER, patient having left hip pain and Nunez catheter placed. Currently denies any fever, SOB, chest pain, headache, abdominal pain, dysuria or any focal weakness. PMHx:CKD stage 4, rectal carcinoma in remission, diabetes mellitus, hypertension, CAD status post CABG, dyslipidemia PSHx: CABG 2009 Family history: coronary artery disease in father Social history: ex-smoker, 13 pack years. Lives with son Allergic history: ibuprofen PCP: Dr. Lozano Home medication: aspirin, atorvastatin, Peterson Manjinder, sodium bicarbonate, ferrous sulfate, lisinopril, carvedilol, ranolazine, Farxiga, amlodipine, Lantus Bedside today. ORIF femur done today. Patient denies any acute pain or not in acute distress. Orthopedic on board. Patient we will be benefitted for physical therapy. Possible placement SNF or home with home health aide. Objective vital signs Vital Sign Date Time Temp Pulse Resp B/P (MAP) Pulse Ox O2 Delivery O2 Flow Rate FiO2 02/14/25 16:06 66 16 95 02/14/25 14:00 127/76 (93) 02/14/25 12:00 97.8 97.8 02/14/25 09:37 Mask 8.0 02/14/25 08:00 21 Total Intake and Output 02/13/25 02/13/25 02/14/25 15:00 23:00 07:00 Intake Total 220 ml 260 ml Output Total 650 ml 300 ml Balance -430 ml -40 ml medications Current Medications Medications Dose Ordered Sig/Blake Route Start Time Stop Time Status Last Admin Dose Admin Acetaminophen 650 mg Q6HR PO 02/13/25 01:15 02/14/25 13:05 650 MG Alprazolam 0.25 mg TID PO 02/13/25 06:00 02/14/25 13:04 0.25 MG Furosemide 20 mg BIDD PO 02/13/25 06:00 Nifedipine 90 mg DAILY PO 02/13/25 10:00 Carvedilol 12.5 mg Q12HR PO 02/13/25 10:00 02/13/25 21:30 12.5 MG Morphine Sulfate 4 mg Q4HR PRN IV 02/13/25 02:45 02/13/25 15:24 4 MG Acetaminophen/ Hydrocodone Bitart 1 tab Q6HP PRN PO 02/13/25 02:45 Insulin Glargine 20 units QAM SC 02/13/25 07:00 Aspirin 81 mg DAILY PO 02/13/25 10:00 Atorvastatin Calcium 80 mg HS PO 02/13/25 22:00 02/13/25 21:28 80 MG Sodium Bicarbonate 650 mg DAILY PO 02/13/25 10:00 Ferrous Sulfate 325 mg DAILY PO 02/13/25 10:00 Ranolazine 500 mg DAILY PO 02/13/25 10:00 Cefazolin Sodium 50 ml @ 100 mls/hr Q8H IV 02/14/25 16:30 02/15/25 08:59 02/14/25 15:37 100 MLS/HR Diphenhydramine HCl 25 mg Q4HP PRN IV 02/14/25 09:45 Ondansetron HCl 4 mg Q4HP PRN IV 02/14/25 09:45 Acetaminophen 1,000 mg Q8H PRN IV 02/14/25 09:45 02/14/25 18:01 Examination General Appearance: Alert, Oriented X3, Cooperative, in acute distress HEENT: Atraumatic, PERRLA, EOMI, Mucous membrane moist/pink Respiratory: Clear to auscultation, Normal air movement Cardiovascular: Regular rate, Normal S1, Normal S2, No murmurs, no chest wall tenderness Abdominal: Normal bowel sounds, Soft, No tenderness, No hepatospenomegaly, F oley catheter in place. Extremities: tenderness in the left hip, covered with dry bandage Skin: No rashes, No breakdown, No significant lesion Neuro: Normal gait, Normal speech, Strength at 5/5 X4 ext, Normal tone, Sensation intact, Cranial nerves 3-12 NL, Reflexes 2+ Psych/Mental Status: Mental status NL, Mood NL laboratory and microbiology Laboratory Tests 02/14/25 05:15 Test 02/14/25 05:15 Range/Units Serum Glucose 135 H 74-106 mg/dL Microbiology Date/Time Source Procedure Growth Status 02/12/25 23:36 Urine - Nunez Port Urine Culture - Preliminary No growth Resulted Problem List/Assessment/Plan Problem List/Assessment/Plan Impacted subcapital femoral neck fracture Intractable left hip pain due to above History of fall left femur x-ray: Impacted subcapital femoral neck fracture. pain management Ortho consult CT left femur*-acted nondisplaced left femoral subcapital neck fracture. Open reduction internal fixation of left hip femoral neck fracture. Intraop fluoroscopy done on 02/14/2025 Repeat left hip flexor: Soft intraoperative C-arm radiographs demonstrating left hip ORIF. Pain management Physical therapy Orthopedic consult appreciated KRISTAN on CKD due to VMN Stage 4 CKD Anemia due to CKD Bilateral hydronephrosis Likely complex cyst right kidney measuring 3.9 cm Left renal calculus Left renal simple cyst Creatinine 2.75, GFR 18 -on admission Renal ultrasound : Moderate bilateral hydronephrosis with cortical thinning, bilateral renal cyst, left inferior pole calculus. CT abdomen: Mild bilateral pelvocaliectasis without evidence of zain hydroureteronephrosis. Urine sodium, urine creatinine, urine protein creatinine ratio Nephro consult Hypertensive emergency Blood pressure 210/95 Nifedipine, carvedilol BP monitor Target blood pressure less than 130/80 Type 2 diabetes mellitus Follow up blood glucose levels HbA1c 6.2 Insulin Lantus Dyslipidemia Continue atorvastatin Follow lipid panel History of coronary artery disease s/p CABG 2009 Hypertensive heart disease possible systolic/dilated systolic heart failure Troponin 17 BNP 336.89 Ranolazine Nifedipine Furosemide carvedilol Atorvastatin Aspirin Nitroglycerin sublingually as needed History of colorectal cancer on remission. PUD prophylaxis: not needed DVT prophylaxis: SCD Goals of care decision. More than 23 minute spent with patient. Son on bedside and updated current condition and treatment plan. Case discussed with Dr. Temple. Plan discussed with: Patient, Other (Nurse) Visit Coding STANDARD RES Billing Provider: GUSTAVO TEMPLE MD Date of Service if different f: Feb 14, 2025 Common Visit Codes: [id number] INP/OBS CARE(HIGH) MICHAEL PEDERSON RESIDENT Feb 14, 2025 17:25 PAZ MCCOY DO Feb 23, 2025 21:18 GUSTAVO TEMPLE MD Feb 24, 2025 10:27
[2025-02-15] VITALS (16 sets, daily range): BP systolic 116–147; BP diastolic 59–87; PULSE 55–80; RESP 16–20; TEMP 96.3–98.3; O2SAT 92–99
[2025-02-15 07:00] LABS: Anion Gap 11 (5-15); Carbon Dioxide 21 mmol/L (20-31); Chloride 106 mmol/L (98-107); Hematocrit 28.9 % (36.0-46.0); Hemoglobin 9.7 g/dL (12.2-16.2); Mean Corpuscular Hemoglobin 30.0 pg (28.0-32.0); Mean Corpuscular Volume 89.4 fL (80.0-100.0); Nucleated Red Blood Cells % 0.0 %; Potassium 4.2 mmol/L (3.5-5.1); Sodium 138 mmol/L (136-145)
[2025-02-15 07:03] LABS: Calcium 8.5 mg/dL (8.7-10.4)
[2025-02-15 07:06] LABS: BUN/Creatinine Ratio 10.7 (10.0-20.0)
[2025-02-15 07:10] LABS: Blood Urea Nitrogen 27 mg/dL (9-23); Glucose 143 mg/dL (74-106)
--- NOTE | 2025-02-15 10:46 | DVHPNRES ---
Progress Note Date Seen: Feb 15, 2025 Resident Creating Document: FREYA PINA RESIDENT Medical Necessity Reason Pt with a Central, PICC or Fol: Yes Subjective Review of Systems Ms. Dudley is a 74 year old female with past medical history of CKD stage 4, rectal carcinoma status post treatment(radiation, surgery, chemotherapy), Type 2 DM, HTN CAD status post CABG [place] [address] [facility] [place], D, and seizure, who came to the ER with chief complaint of left hip pain following a mechanical fall. Patient stated she went to her garage, tripped on the floor, and landed on the left side of the body with sudden onset of pain described as 9/10 intensity, localized, dull, nonradiating, aggravated on movement, with no relieving factors. On evaluation in ER, patient presented left hip pain and Nunez catheter placed. Currently denies any fever, SOB, chest pain, headache, abdominal pain, dysuria or any focal weakness. PMHx:CKD stage 4, rectal carcinoma in remission, diabetes mellitus, hypertension, CAD status post CABG, dyslipidemia PSHx: CABG 2009 Family history: coronary artery disease in father Social history: ex-smoker, 13 pack years. Lives with son Allergic history: ibuprofen PCP: Dr. Lozano Home medication: aspirin, atorvastatin, [place] Manjinder, sodium bicarbonate, ferrous sulfate, lisinopril, carvedilol, ranolazine, Farxiga, amlodipine, Lantus 02/15/2025: Patient seen at bedside today. Per her nurse, no overnight events to report. POD 1, she refers soreness and swelling in her left thigh. She is afebrile, normocardic, normotensive, saturating adequately on room air. Labs are significant for downtrend in Hb, creatinine is stable. She was evaluated by PT, who recommends SNF for PT. On evaluation, she states that although she would like to go home, she is amenable to going to SNF for PT. Objective vital signs Vital Sign Date Time Temp Pulse Resp B/P (MAP) Pulse Ox O2 Delivery O2 Flow Rate FiO2 02/15/25 10:21 63 16 132/69 02/15/25 09:00 98.2 99 98.2 02/14/25 20:00 Room Air* 0 21 Total Intake and Output 02/14/25 02/14/25 02/15/25 15:00 23:00 07:00 Intake Total 150 ml 490 ml 1650 ml Output Total 450 ml 1650 ml Balance 150 ml 40 ml 0 ml medications Current Medications Medications Dose Ordered Sig/Blake Route Start Time Stop Time Status Last Admin Dose Admin Acetaminophen 650 mg Q6HR PO 02/13/25 01:15 02/14/25 23:35 650 MG Alprazolam 0.25 mg TID PO 02/13/25 06:00 02/14/25 21:38 0.25 MG Furosemide 20 mg BIDD PO 02/13/25 06:00 Nifedipine 90 mg DAILY PO 02/13/25 10:00 02/15/25 10:15 90 MG Carvedilol 12.5 mg Q12HR PO 02/13/25 10:00 02/14/25 21:38 12.5 MG Morphine Sulfate 4 mg Q4HR PRN IV 02/13/25 02:45 02/15/25 10:21 4 MG Acetaminophen/ Hydrocodone Bitart 1 tab Q6HP PRN PO 02/13/25 02:45 Insulin Glargine 20 units QAM SC 02/13/25 07:00 Aspirin 81 mg DAILY PO 02/13/25 10:00 02/15/25 10:14 81 MG Atorvastatin Calcium 80 mg HS PO 02/13/25 22:00 02/14/25 21:39 80 MG Sodium Bicarbonate 650 mg DAILY PO 02/13/25 10:00 02/15/25 10:14 650 MG Ferrous Sulfate 325 mg DAILY PO 02/13/25 10:00 02/15/25 10:14 325 MG Ranolazine 500 mg DAILY PO 02/13/25 10:00 02/15/25 10:14 500 MG Diphenhydramine HCl 25 mg Q4HP PRN IV 02/14/25 09:45 Ondansetron HCl 4 mg Q4HP PRN IV 02/14/25 09:45 Examination General Appearance: Alert, Oriented X3, Cooperative, in acute distress HEENT: Atraumatic, PERRLA, EOMI, Mucous membrane moist/pink Respiratory: Clear to auscultation, Normal air movement Cardiovascular: Regular rate, Normal S1, Normal S2, No murmurs, no chest wall tenderness Abdominal: Normal bowel sounds, Soft, No tenderness, No hepatospenomegaly Extremities: tenderness in the left hip, covered with dry bandage Skin: No rashes, No breakdown, No significant lesion Neuro: Limited gait due to pain , Normal speech, Strength at 5/5 X4 ext, Normal tone, Sensation intact, Cranial nerves 3-12 NL, Reflexes 2+ Psych/Mental Status: Mental status NL, Mood NL laboratory and microbiology Laboratory Tests 02/15/25 04:40 Test 02/15/25 04:40 Range/Units Serum Glucose 143 H 74-106 mg/dL Microbiology Date/Time Source Procedure Growth Status 02/12/25 23:36 Urine - Nunez Port Urine Culture - Preliminary No growth Resulted Problem List/Assessment/Plan Problem List/Assessment/Plan Assessment and Plan: Impacted subcapital femoral neck fracture Intractable left hip pain due to above History of fall -Left femur x-ray: Impacted subcapital femoral neck fracture. pain management -CT left femur: impacted nondisplaced left femoral subcapital neck fracture. -Open reduction internal fixation of left hip femoral neck fracture. Intraop fluoroscopy done on 02/14/2025 -Repeat left hip flexor: Soft intraoperative C-arm radiographs demonstrating left hip ORIF. -Pain management -Physical therapy: PT recommends SNF for PT KRISTAN on CKD due to VMN Stage 4 CKD Anemia due to CKD Bilateral hydronephrosis Likely complex cyst right kidney measuring 3.9 cm Left renal calculus Left renal simple cyst -Creatinine 2.75, GFR 18 -on admission -Renal ultrasound : Moderate bilateral hydronephrosis with cortical thinning, bilateral renal cyst, left inferior pole calculus. -CT abdomen: Mild bilateral pelvocaliectasis without evidence of zain hydroureteronephrosis. -Urine sodium, urine creatinine, urine protein creatinine ratio -Nephro consult Hypertensive emergency -Blood pressure 210/95 -Nifedipine, carvedilol -BP monitor -Target blood pressure less than 130/80 Type 2 diabetes mellitus with hyperglycemia, HbA1c: 6.2 -Accu-cheks -Insulin Lantus Dyslipidemia -Continue atorvastatin History of coronary artery disease s/p CABG 2010 Hypertensive heart disease possible systolic/dilated systolic heart failure -Troponin 17 -BNP 336.89 -Ranolazine -Nifedipine -Furosemide carvedilol -Atorvastatin -Aspirin -Nitroglycerin sublingually as needed History of colorectal cancer on remission. PUD prophylaxis: not needed DVT prophylaxis: SCD director of food and nutrition services consult has been placed for SNF for PT. Goals of care decision. More than 27 minute spent with patient. Case discussed with Dr. Mccoy. Plan discussed with: Patient, Other (Nurse) My Orders My Orders Orders - FREYA PINA RESIDENT Procedure Category Date Status Time * Floor Scraper CONS 02/15/25 Transmitted Consult Visit Coding STANDARD RES Billing Provider: PAZ MCCOY DO Date of Service if different f: Feb 15, 2025 Common Visit Codes: [id number] INP/OBS CARE(MOD) FREYA PINA RESIDENT Feb 15, 2025 10:46 PAZ MCCOY DO Feb 23, 2025 21:18
[2025-02-16] VITALS (7 sets, daily range): BP systolic 126–151; BP diastolic 73–81; PULSE 74–90; RESP 16–20; TEMP 97.7–98.4; O2SAT 92–97
[2025-02-16] MEDS: HYDROcodone-ACET 10/325MG TAB PO PRN (02:57)
[2025-02-16 06:58] LABS: Potassium 4.0 mmol/L (3.5-5.1); Sodium 143 mmol/L (136-145)
[2025-02-16 06:59] LABS: Anion Gap 10 (5-15); Carbon Dioxide 22 mmol/L (20-31)
[2025-02-16 07:00] LABS: Calcium 8.6 mg/dL (8.7-10.4); Chloride 111 mmol/L (98-107)
[2025-02-16 07:04] LABS: BUN/Creatinine Ratio 13.7 (10.0-20.0); Hematocrit 32.4 % (36.0-46.0); Hemoglobin 10.8 g/dL (12.2-16.2); Mean Corpuscular Hemoglobin 29.6 pg (28.0-32.0); Mean Corpuscular Volume 89.0 fL (80.0-100.0); Nucleated Red Blood Cells % 0.0 %
[2025-02-16 07:05] LABS: Blood Urea Nitrogen 33 mg/dL (9-23); Glucose 113 mg/dL (74-106)
[2025-02-16 12:14] LABS: Urine Protein, UAD TRACE (Negative)
--- NOTE | 2025-02-16 16:01 | DVHPNRES ---
Progress Note Date Seen: Feb 16, 2025 Resident Creating Document: MICHAEL PEDERSON RESIDENT Medical Necessity Reason Pt with a Central, PICC or Fol: Yes The following are medically ne: Nunez Catheter Subjective Review of Systems Ms. Dudley is a 74 year old female with past medical history of CKD stage 4, rectal carcinoma status post treatment(radiation, surgery, chemotherapy), Type 2 DM, HTN CAD [place] [facility] [place], and seizure, who came to the ER with chief complaint of left hip pain following a mechanical fall. Patient stated she went to her garage, tripped on the floor, and landed on the left side of the body with sudden onset of pain described as 9/10 intensity, localized, dull, nonradiating, aggravated on movement, with no relieving factors. On evaluation in ER, patient presented left hip pain and Nunez catheter placed. Currently denies any fever, SOB, chest pain, headache, abdominal pain, dysuria or any focal weakness. PMHx:CKD stage 4, rectal carcinoma in remission, diabetes mellitus, hypertension, CAD status post CABG, dyslipidemia PSHx: CABG 2009 Family history: coronary artery disease in father Social history: ex-smoker, 13 pack years. Lives with son Allergic history: ibuprofen PCP: Dr. Lozano Home medication: aspirin, atorvastatin, [place] Manjinder, sodium bicarbonate, ferrous sulfate, lisinopril, carvedilol, ranolazine, Farxiga, amlodipine, Lantus. Patient seen and evaluated in bedside today. Patient left hip pain significantly improved after ORIF. POD 2. Placement to SNF. Objective vital signs Vital Sign Date Time Temp Pulse Resp B/P (MAP) Pulse Ox O2 Delivery O2 Flow Rate FiO2 02/16/25 10:12 70 16 129/71 02/16/25 09:25 98.0 94 98.0 02/16/25 08:00 Room Air* 0 21 Total Intake and Output 02/15/25 02/15/25 02/16/25 15:00 23:00 07:00 Intake Total 250 ml 1145 ml 740 ml Output Total 1950 ml Balance 250 ml 1145 ml -1210 ml medications Current Medications Medications Dose Ordered Sig/Blake Route Start Time Stop Time Status Last Admin Dose Admin Acetaminophen 650 mg Q6HR PO 02/13/25 01:15 02/16/25 13:48 650 MG Alprazolam 0.25 mg TID PO 02/13/25 06:00 02/16/25 13:47 0.25 MG Furosemide 20 mg BIDD PO 02/13/25 06:00 02/16/25 06:01 20 MG Nifedipine 90 mg DAILY PO 02/13/25 10:00 Hold 02/15/25 10:15 90 MG Carvedilol 12.5 mg Q12HR PO 02/13/25 10:00 02/15/25 22:06 12.5 MG Morphine Sulfate 4 mg Q4HR PRN IV 02/13/25 02:45 02/16/25 10:12 4 MG Acetaminophen/ Hydrocodone Bitart 1 tab Q6HP PRN PO 02/13/25 02:45 02/16/25 02:57 1 TAB Insulin Glargine 20 units QAM SC 02/13/25 07:00 02/16/25 06:11 20 UNITS Aspirin 81 mg DAILY PO 02/13/25 10:00 02/16/25 10:01 81 MG Atorvastatin Calcium 80 mg HS PO 02/13/25 22:00 02/15/25 22:02 80 MG Sodium Bicarbonate 650 mg DAILY PO 02/13/25 10:00 02/16/25 10:01 650 MG Ferrous Sulfate 325 mg DAILY PO 02/13/25 10:00 02/16/25 10:01 325 MG Ranolazine 500 mg DAILY PO 02/13/25 10:00 02/16/25 10:00 500 MG Diphenhydramine HCl 25 mg Q4HP PRN IV 02/14/25 09:45 Ondansetron HCl 4 mg Q4HP PRN IV 02/14/25 09:45 Amlodipine Besylate 10 mg DAILY PO 02/16/25 10:00 02/16/25 10:02 10 MG Examination General Appearance: Alert, Oriented X3, Cooperative, in acute distress HEENT: Atraumatic, PERRLA, EOMI, Mucous membrane moist/pink Respiratory: Clear to auscultation, Normal air movement Cardiovascular: Regular rate, Normal S1, Normal S2, No murmurs, no chest wall tenderness Abdominal: Normal bowel sounds, Soft, No tenderness, No hepatospenomegaly Extremities: tenderness in the left hip, covered with dry bandage Skin: No rashes, No breakdown, No significant lesion Neuro: Limited gait due to pain , Normal speech, Strength at 5/5 X4 ext, Normal tone, Sensation intact. Psych/Mental Status: Mental status NL, Mood NL laboratory and microbiology Laboratory Tests 02/16/25 05:08 Test 02/16/25 05:08 Range/Units Serum Glucose 113 H 74-106 mg/dL Microbiology Date/Time Source Procedure Growth Status 02/12/25 23:36 Urine - Nunez Port Urine Culture - Final Complete Problem List/Assessment/Plan Problem List/Assessment/Plan Impacted subcapital femoral neck fracture S/P ORIF ON 02/14/2025 Intractable left hip pain due to above History of fall left femur x-ray: Impacted subcapital femoral neck fracture. pain management Ortho consult CT left femur*-acted nondisplaced left femoral subcapital neck fracture. Open reduction internal fixation of left hip femoral neck fracture. Intraop fluoroscopy done on 02/14/2025 Repeat left hip flexor: Soft intraoperative C-arm radiographs demonstrating left hip ORIF. Pain management Physical therapy Orthopedic consult appreciated KRISTAN on CKD due to VMN Stage 4 CKD Anemia due to CKD Bilateral hydronephrosis Likely complex cyst right kidney measuring 3.9 cm Left renal calculus Left renal simple cyst Hypocalcemia Creatinine 2.75, GFR 18 -on admission Renal ultrasound : Moderate bilateral hydronephrosis with cortical thinning, bilateral renal cyst, left inferior pole calculus. CT abdomen: Mild bilateral pelvocaliectasis without evidence of zain hydroureteronephrosis. Urine sodium, urine creatinine, urine protein creatinine ratio Nephro consult Hypertensive heart disease likely systolic/diastolic heart failure Nifedipine carvedilol BP monitor Target blood pressure less than 130/80 Type 2 diabetes mellitus Follow up blood glucose levels HbA1c 6.2 Insulin Lantus Dyslipidemia Continue atorvastatin Follow lipid panel ANEMIA OF CHRONIC DISEASE Hemoglobin stable No active signs symptoms of bleeding CBC History of coronary artery disease s/p CABG 2010 Hypertensive heart disease possible systolic/dilated systolic heart failure Troponin 17 BNP 336.89 Ranolazine Nifedipine Furosemide carvedilol Atorvastatin Aspirin Nitroglycerin sublingually as needed History of colorectal cancer on remission. PUD prophylaxis: not needed DVT prophylaxis: SCD Goals of care decision. More than 19 minute spent with patient. Son on bedside and updated current condition and treatment plan. Case discussed with Dr. Mccoy Plan discussed with: Patient, Other (nurse) My Orders My Orders Orders - MICHAEL PEDERSON Procedure Category Date Status Time Amlodipine Tablet PHA 02/16/25 In Process (Norvasc Tablet) 10:00 Visit Coding STANDARD RES Billing Provider: PAZ MCCOY DO Date of Service if different f: Feb 16, 2025 Common Visit Codes: [id number] INP/OBS CARE(MOD) Secondary Visit Codes: [id number] CARE PLAN 30 MINUTES MICHAEL PEDERSON Feb 16, 2025 16:01 PAZ MCCOY DO Feb 23, 2025 21:18
[2025-02-16] MEDS: hydrOXYzine HCL 10 MG TAB PO ONE (16:09)
[2025-02-17 01:00] VITALS: BP 137/83; PULSE 85; RESP 18; TEMP 97.7; O2SAT 97
[2025-02-17 05:00] VITALS: BP 133/85; PULSE 81; RESP 18; TEMP 97.3; O2SAT 96
[2025-02-17 06:41] LABS: Hematocrit 37.4 % (36.0-46.0); Hemoglobin 12.3 g/dL (12.2-16.2); Mean Corpuscular Hemoglobin 29.8 pg (28.0-32.0); Mean Corpuscular Volume 90.4 fL (80.0-100.0); Nucleated Red Blood Cells % 0.1 %
[2025-02-17 06:51] LABS: Anion Gap 10 (5-15); Carbon Dioxide 24 mmol/L (20-31); Potassium 4.3 mmol/L (3.5-5.1); Sodium 142 mmol/L (136-145)
[2025-02-17 06:52] LABS: Calcium 9.4 mg/dL (8.7-10.4); Chloride 108 mmol/L (98-107)
[2025-02-17 06:58] LABS: BUN/Creatinine Ratio 13.2 (10.0-20.0)
[2025-02-17 06:59] LABS: Blood Urea Nitrogen 34 mg/dL (9-23); Glucose 140 mg/dL (74-106)
[2025-02-17 08:00] VITALS: PULSE 84; PULSE 86; RESP 17; O2SAT 98
[2025-02-17 09:00] VITALS: BP 149/91; PULSE 86; RESP 18; TEMP 98; O2SAT 98
[2025-02-17 12:34] VITALS: BP 155/88; PULSE 89; RESP 19; TEMP 98.6; O2SAT 95
--- NOTE | 2025-02-17 14:49 | DVHDSRES ---
Discharge Summary Date of Admission Resident Creating Document: MICHAEL PEDERSON RESIDENT Feb 12, 2025 at 23:57 Date of Discharge: Feb 17, 2025 Labs/Diagnostic Data: Laboratory Results Test 02/17/25 06:34 02/17/25 05:52 02/16/25 10:20 02/13/25 05:07 POC Glucose 144 mg/dl (70-106) White Blood Count 9.7 10^3/uL (4.4-10.8) Red Blood Count 4.13 10^6/uL (4.0-5.20) Hemoglobin 12.3 g/dL (12.2-16.2) Hematocrit 37.4 % (36.0-46.0) Mean Corpuscular Volume 90.4 fL (80.0-100.0) Mean Corpuscular Hemoglobin 29.8 pg (28.0-32.0) Mean Corpuscular Hemoglobin Concent 32.9 g/dL (32.0-36.0) Red Cell Distribution Width 15.1 % (11.8-14.3) Platelet Count 237 10^3/uL (140-450) Mean Platelet Volume 9.1 fL (6.9-10.8) Neutrophils (%) (Auto) 84.0 % (37.0-80.0) Lymphocytes (%) (Auto) 9.0 % (10.0-50.0) Monocytes (%) (Auto) 5.2 % (0.0-12.0) Eosinophils (%) (Auto) 1.4 % (0.0-7.0) Basophils (%) (Auto) 0.4 % (0.0-2.0) Neutrophils # (Auto) 8.1 10 ^3/uL (1.6-8.6) Lymphocytes # (Auto) 0.9 10 ^3/uL (0.4-5.4) Monocytes # (Auto) 0.5 10 ^3/uL (0-1.3) Eosinophils # (Auto) 0.1 10 ^3/uL (0-0.8) Basophils # (Auto) 0 10 ^3/uL (0-0.2) Nucleated Red Blood Cells 0.1 % Sodium Level 142 mmol/L (136-145) Potassium Level 4.3 mmol/L (3.5-5.1) Chloride Level 108 mmol/L (98-107) Carbon Dioxide Level 24 mmol/L (20-31) Anion Gap 10 (5-15) Blood Urea Nitrogen 34 mg/dL (9-23) Creatinine 2.57 mg/dL (0.550-1.02) Glomerular Filtration Rate Calc 19 mL/min (>90) BUN/Creatinine Ratio 13.2 (10.0-20.0) Serum Glucose 140 mg/dL (74-106) Calcium Level 9.4 mg/dL (8.7-10.4) Urine Color Colorless (Yellow) Urine Clarity Clear (Clear) Urine pH 6.5 (5.0-9.0) Urine Specific [place] 1.010 (1.001-1.035) Urine Protein Trace (Negative) Urine Ketones Negative (Negative) Urine Blood 2+ /uL (Negative) Urine Nitrite Negative (Negative) Urine Bilirubin Negative (Negative) Urine Urobilinogen Normal mg/dL (Negative) Urine Leukocyte Esterase Negative /uL (Negative) Urine RBC 71 /hpf (0 - 4) Urine Microscopic WBC 3 /HPF (0-5) Urine Squamous Epithelial Cells Few /hpf (<5) Urine Bacteria None seen /hpf (None Seen) Urine Glucose 3+ mg/dL (Normal) Prothrombin Time 11.5 sec (9.3-11.8) Prothrombin Time INR 1.09 (0.9-1.15) Activated Partial Thromboplast Time 25.9 SEC (24.5-34.5) Hemoglobin A1c 6.2 % A1C (<5.7) B-Type Natriuretic Peptide 336.89 pg/mL (0-100) Triglycerides Level 122 mg/dL (< 150) Cholesterol Level 129 mg/dL (< 200) LDL Cholesterol 61 mg/dL (< 100) HDL Cholesterol 50 mg/dL (40-59) Test 02/12/25 23:36 02/12/25 18:50 Urine Creatinine 22.78 mg/dL (30.0-125.0) Urine Protein/Creatinine Ratio 2.50 Urine Sodium 131 mmol/L (40-220) Urine Total Protein 56.9 mg/dL (1-14) Urine Opiates Screen Neg (NEGATIVE) Urine Fentanyl Screen Neg (NEGATIVE) Urine Barbiturates Screen Neg (NEGATIVE) Urine Phencyclidine Screen Neg (NEGATIVE) Urine Amphetamines Screen Neg (NEGATIVE) Urine Benzodiazepines Screen Neg (NEGATIVE) Urine Cocaine Screen Neg (NEGATIVE) Urine Cannabinoids Screen Neg (NEGATIVE) Total Bilirubin 0.2 mg/dL (0.2-1.0) Aspartate Amino Transferase (AST) 14 U/L (13-40) Alanine Aminotransferase (ALT) 20 U/L (7-40) Alkaline Phosphatase 98 U/L (46-116) Creatine Kinase 158 U/L (34-145) Troponin I High Sensitivity 17 ng/L (</=34) Total Protein 6.7 g/dL (5.7-8.2) Albumin 4.1 g/dL (3.2-4.8) Other Laboratory Tests 02/17/25 05:52 Brief Hx & Hospital Course: Ms. Dudley is a 74 year old female with past medical history of CKD stage 4, rectal carcinoma status post treatment(radiation, surgery, chemotherapy), Type 2 DM, HTN CAD status post CABG in 2009 at [facility] [place], [facility], and seizure, who came to the ER with chief complaint of left hip pain following a mechanical fall. Patient stated she went to her garage, tripped on the floor, and landed on the left side of the body with sudden onset of pain described as 9/10 intensity, localized, dull, nonradiating, aggravated on movement, with no relieving factors. On evaluation in ER, patient presented left hip pain and Nunez catheter placed. Currently denies any fever, SOB, chest pain, headache, abdominal pain, dysuria or any focal weakness. PMHx:CKD stage 4, rectal carcinoma in remission, diabetes mellitus, hypertension, CAD status post CABG, dyslipidemia PSHx: CABG 2009 Family history: coronary artery disease in father Social history: ex-smoker, 13 pack years. Lives with son Allergic history: ibuprofen PCP: Dr. Lozano [facility] COURSE: Patient admitted here for impacted subcapital femoral neck fracture s/p ORIF on 02/14/2025. Before came to the hospital patient history of fall. left femur x-ray: Impacted subcapital femoral neck fracture.CT left femur*-acted nondisplaced left femoral subcapital neck fracture. Orthopedic consulted and Open reduction internal fixation of left hip femoral neck fracture. Intraop fluoroscopy done on 02/14/2025. Patient treated with pain management and as well as other chronic medical conditions treated during hospitalization. Repeat left hip flexor: Soft intraoperative C-arm radiographs demonstrating left hip ORIF. Physical therapy recommended patient will be benefitted SNF with PT. During admission, patient also having KRISTAN on CKD due to vasomotor nephropathy. Renal ultrasound : Moderate bilateral hydronephrosis with cortical thinning, bilateral renal cyst, left inferior pole calculus. CT abdomen: Mild bilateral pelvocaliectasis without evidence of zain hydroureteronephrosis. Recommended outpatient Nephrology follow-up. Patient is hemodynamically stable for discharge. Patient has received maximum benefit from inpatient treatment. Time was given to answer patient's questions and concerns in layman terms and explained by RN. Patient verbalized understanding and agreed with treatment and follow-up. Patient was recommended to return to ER if he experiences any worsening symptoms not limited to current symptoms. Patient transferred to senior living facility and recommended resume home medication. Examination Constitutional: No: Fever, Chills, Sweats, Weakness, Malaise, Other Eyes: No: Pain, Vision change, Conjunctivae inflammation, Eyelid inflammation, Other, Redness ENT: No: Ear pain, Ear discharge, Nose pain, Nose discharge, Nose congestion, Mouth pain, Mouth swelling, Throat pain, Throat swelling, Other Respiratory: Shortness of breath; No: Cough, Dry, SOB with excertion, Wheezing, Hemoptysis, Pleuritic Pain, Sputum, Wheezing, Other Cardiovascular: No: Chest Pain, Palpitations, Orthopnea, Paroxysmal Noc. Dyspnea, Edema, Lt Headedness, Other Gastrointestinal: No: Nausea, Vomiting, Abdominal Pain, Diarrhea, Constipation, Melena, Hematochezia, Other Genitourinary: No Dysuria, No Frequency, No Incontinence, No Hematuria, No Retention, No Other Musculoskeletal: No: other, neck pain, shoulder pain, arm pain, back pain, hand pain, leg pain, foot pain Skin: No: Rash, Lesions, Jaundice, Bruising, Other Neurological: No: Weakness, Numbness, Incoordination, Change in speech, Confusion, Seizures, Other More than 23 minute spent with patient. Case discussed with nurse, patient, joseph Temple. Operations or Procedures ORDERING PHYSICIAN: KRYSTEN DIANE DO PROCEDURE(s): ABPL - CT AB PEL WO CON-NO ORAL OR IV REASON: Left hip pain status post fall ORDER NUMBER(s): [id number], ACCESSION NUMBER(s): [id number] CLINICAL HISTORY: Left hip pain status post fall. TECHNIQUE: CT of the abdomen and pelvis was performed without intravenous contrast. This exam was performed according to our departmental dose optimization program. Up-to-date CT equipment and radiation dose reduction techniques are utilized as appropriate. CTDIvol: 8 mGy; DLP: 439.5 mGy-cm. COMPARISON: None available. FINDINGS: Lack of intravenous contrast limits assessment of the organs and vasculature. Within this limitation, the following assessment is made: Lower Chest: Lung Bases: Minimal dependent subsegmental atelectasis and/or scarring of the lung bases. Right lower lobe with a solid pulmonary nodule measuring 4 mm, which does not necessitate imaging follow-up based on Fleischner Society Pulmonary nodule recommendations. Severe 3-vessel calcific atherosclerosis of the coronary arteries. Abdomen and Pelvis: Liver: Unremarkable. Gallbladder: Unremarkable. Bile Ducts: Unremarkable. Pancreas: Unremarkable. Spleen: Unremarkable. Adrenal glands: Adrenal glands with hyperplasia without evidence of a discrete nodule. Kidneys/Ureters: Mild bilateral pelvocaliectasis without evidence of zain hydroureteronephrosis. Left kidney inferior pole with a punctate nonobstructing stone. No evidence of an obstructing urinary tract stone. Right kidney superior pole with a hyperdense cyst measuring 2.1 cm, which favors a hemorrhagic or proteinaceous cyst. Right inferior pole with a cyst measuring 3.5 cm. Left kidney inferior pole with a cyst measuring 2.3 cm with trace layering milk of calcium. Stomach: Unremarkable. Small and Large Bowel: Evidence of prior distal ileum partial resection with a patent anastomosis. No evidence of bowel obstruction or abnormal bowel wall thickening.. Appendix: Surgically absent. Vasculature: Hdjpxnjp-hf-xlkxxj calcific atherosclerosis of the abdominal aorta and branches. No evidence of an abdominal aortic aneurysm. Lymph nodes: Unremarkable. Mesentery: No evidence of intraperitoneal free gas or liquid. Pelvic Organs: Unremarkable. Bladder: Unremarkable. Abdominal Wall: Unremarkable. Soft tissues: Nbmx-rn-akxyjpue subcutaneous fat stranding along the left posterolateral hip. Bones: No acute or suspicious osseous abnormality. Degenerative related grade 1 anterolistheses of L3 on L4 and L4 on L5. Mchwvndm-wg-otiddo degenerative changes of the lumbar spine (with notable high-grade spinal canal stenoses from the L2-L3 through the L4-L5 levels). Mild degenerative changes of the sacroiliac joints. Focal benign-appearing lucent lesion of the right iliac bone measuring 2.1 cm Osseous structures are demineralized. Other: None. IMPRESSION: 1. No acute intra-abdominal or intrapelvic abnormality. 2. No acute fracture or dislocation of the left hip. 3. Mild bilateral pelvocaliectasis without evidence of zain hydroureteronephrosis. 4. Additional chronic findings as described. ATED BY: ROSA DE LA CRUZ MD DICTATED DATE/TIME: 02/12/252028 ORDERING PHYSICIAN: KRYSTEN DIANE DO PROCEDURE(s): LFEM - L FEMUR XRAY REASON: fall ORDER NUMBER(s): [id number], ACCESSION NUMBER(s): [id number] CLINICAL INDICATION: fall, pain TECHNIQUE: XYXY L FEMUR XRAY COMPARISON: None FINDINGS/IMPRESSION: : Impacted subcapital femoral neck fracture. Alignment is anatomic. ATED BY: ROSA DE LA CRUZ MD DICTATED DATE/TIME: 02/12/252232 ORDERING PHYSICIAN: GLADYS KOWALSKI PROCEDURE(s): CXR1 - CHEST XRAY 1 VIEW REASON: preop ORDER NUMBER(s): [id number], ACCESSION NUMBER(s): [id number] CHEST RADIOGRAPH INDICATION: preop TECHNIQUE: Single frontal view of the chest was obtained COMPARISON: None FINDINGS: Lines and Tubes: None Lungs: Clear Pleura: No effusion. No pneumothorax. Cardiomediastinal contours: Unremarkable status post median sternotomy. Bones: Unremarkable IMPRESSION: 1. No acute cardiopulmonary disease. ATED BY: RENZO NUNEZ MD DICTATED DATE/TIME: 02/13/25 0648 ORDERING PHYSICIAN: GLADYS KOWALSKI PROCEDURE(s): KIDUS - KIDNEY REASON: KRISTAN ORDER NUMBER(s): [id number], ACCESSION NUMBER(s): [id number] INDICATION: KRISTAN TECHNIQUE: Multiple real-time sonographic images of the kidneys and bladder were obtained. COMPARISON: None FINDINGS: RIGHT kidney measures 11.5 cm in length with normal parenchymal echotexture and mildly diminished thickness. Complex appearing inferior pole cyst measures 3.9 x 3.5 x 3.0 cm. Moderate hydronephrosis. LEFT kidney measures 9.2 cm in length with normal parenchymal echotexture and mildly diminished thickness. Simple appearing inferior pole anechoic cyst measures 2.2 x 2.1 x 1.8 cm. 3 mm left inferior pole pelvocaliceal calculus. Moderate hydronephrosis. The urinary bladder is contracted, containing a Nunez catheter. IMPRESSION: 1. Moderate bilateral hydronephrosis and cortical thinning. 2. Complex appearing inferior pole right renal cyst measuring 3.9 cm. 3. Simple appearing left renal cyst. 4. Left inferior pole calculus. ATED BY: ERNZO NUNEZ MD DICTATED DATE/TIME: 02/13/25 0346 ORDERING PHYSICIAN: MICHAEL PEDERSON PROCEDURE(s): [facility] - CT L FEMUR WO CONTRAST REASON: X-ray shows Left Femoral neck fracture. ORDER NUMBER(s): [id number], ACCESSION NUMBER(s): [id number] EXAM: CT CT L FEMUR WO CONTRAST INDICATION: X-ray shows Left Femoral neck fracture. TECHNIQUE: Axial images of left femur without contrast have been obtained along with coronal and sagittal reformatted images. All CT scans at this facility use dose modulation, iterative reconstruction, and/or weight based dosing when appropriate to reduce radiation dose to as low as reasonably achievable. COMPARISON: XY L FEMUR XRAY on DOS: 02/12/25 FINDINGS: BONES: Impacted nondisplaced left femoral subcapital neck fracture without significant displacement. Degenerative change of the left knee. Vascular calcifications. Whhc-ld-jkpcdteu degenerative change of the pubic symphysis. Mild suspected degenerative change with chondrocalcinosis of the left hip. MUSCLES: No abnormal attenuation. JOINT SPACES: Chondrocalcinosis of the medial and lateral menisci of the left knee with dxtj-ko-troryfvp medial weight-bearing compartment joint space loss. TENDONS/LIGAMENTS: Quadriceps insertional enthesophyte. OTHER: Nunez catheter in place. Postsurgical changes in the lower rectum. Kviy-pk-wbabopgm stool burden. Subcutaneous adipose tissue edema likely compatible with soft tissue contusion of the left lateral thigh IMPRESSION: 1. Impacted nondisplaced left femoral subcapital neck fracture. 2. Degenerative change of the left knee. ATED BY: ALBERT BARRIOS MD DICTATED DATE/TIME: 02/13/25 1736 ORDERING PHYSICIAN: ROSA DE LA CRUZ MD PROCEDURE(s): CARM1 - C ARM FLUOROSCOPY UP TO 60MIN REASON: LEFT HIP ORIF ORDER NUMBER(s): [id number], ACCESSION NUMBER(s): [id number] XY C ARM FLUOROSCOPY UP TO 60MIN Indication: LEFT HIP ORIF Comparison: None FINDINGS: C-arm fluoroscopic guidance was used. This report is rendered for records purposes only. A radiologist was not present for this procedure. No image submitted. Fluoroscopy Time/Exposure/Number of Images: 56.6 seconds IMPRESSION: FLUOROSCOPY. PLEASE REFER TO THE DEDICATED PROCEDURAL/OPERATIVE REPORT FOR FINDINGS. ATED BY: ROSA DE LA CRUZ MD DICTATED DATE/TIME: 02/14/25 1135 ORDERING PHYSICIAN: ROSA DE LA CRUZ MD PROCEDURE(s): LHIP - L HIP COMPLETE XRAY REASON: LEFT HIP ORIF ORDER NUMBER(s): [id number], ACCESSION NUMBER(s): [id number] C-ARM FLUOROSCOPY: PROCEDURE: Left hip ORIF FLUOROSCOPY TIME: 56.6 seconds Air Kerma: 6.2 mgy FINDINGS: Spot intraoperative C arm radiographs demonstrating left hip ORIF. IMPRESSION: Please refer to surgical report for detailed findings. ATED BY: TRINO ROSE MD DICTATED DATE/TIME: 02/14/25 1145 Operative Report - 2 Report Details Date: 02/14/25 Preop Diagnosis: left femoral neck fracture Postop Diagnosis: left femoral neck fracture Surgeon: Elmer De La Cruz MD Engineering Agent: Bob MONROY Anesthesiologist: Wesly SUGGS Anesthesia: Regional Implant: [employer] Hip fracture system Consent: The patient was informed of the risks and benefits of the procedure. These include but are not limited to complications of anesthesia, postoperative infection, incomplete relief of symptoms, recurrence of symptoms, damage to blood vessels, nerves and tendons, deep venous thrombosis, pulmonary embolism and possible need for repeat surgery in the future. Estimated Blood Loss: 50 cc Name of Procedure Performed 1. Open reduction internal fixation of left hip femoral neck fracture 2. Intraop fluoroscopy Procedure Details Procedure Details: The patient was brought to the operating room and placed supine on a fracture table. The left lower extremity was prepped and draped in the usual sterile fashion. Appropriate anesthesia was administered. Closed reduction of the left femoral neck fracture was performed under fluoroscopic guidance. Traction and gentle manipulation were applied to achieve anatomic alignment, confirmed on both AP and lateral fluoroscopic views. Once satisfactory reduction was obtained, the lateral aspect of the proximal femur was identified and marked. Small stab incisions were made at the planned pin entry sites. Under fluoroscopic guidance, three parallel guide wires were inserted percutaneously across the femoral neck fracture into the femoral head, ensuring appropriate position and spread on both AP and lateral views. After confirming satisfactory guide wire placement, cannulated screws were measured, drilled, and inserted over the guide wires to achieve stable fixation. Final fluoroscopic images confirmed anatomic reduction and appropriate hardware placement, with no evidence of intra-articular penetration. The wounds were irrigated and closed with interrupted nylon sutures. Sterile dressings were applied. The patient tolerated the procedure well and was transferred to the recovery area in stable condition. Condition Good Disposition 2 Still a Patient ELMER DE LA CRUZ MD Feb 14, 2025 08:35 DICTATED BY:ELMER DE LA CRUZ MD DICTATED DATE/TIME:02/14/25 0835 Condition at Discharge: Stable Final Diagnosis/Problems List Impacted subcapital femoral neck fracture S/P ORIF ON 02/14/2025 Intractable left hip pain due to above History of fall KRISTAN on CKD due to VMN Anemia due to CKD Dyslipidemia Type 2 diabetes mellitus Hypertensive heart disease likely systolic/diastolic heart failure Bilateral hydronephrosis Likely complex cyst right kidney measuring 3.9 cm Left renal calculus History of coronary artery disease s/p CABG 2009 ANEMIA OF CHRONIC DISEASE Left renal simple cyst Hypocalcemia History of colorectal cancer on remission. Discharge Disposition: [facility] Facility Discharge Instruct/Medications Diet: Consistent carbohydrate Activity: No Restrictions, As Tolerated Follow Up/Referral: PCP care home facility with PT ORTHOPEDIC OUTPATIENT CLINIC OUTPATIENT CONTINUITY CLINIC MONDAY MORNING WITHIN 2 WEEKS AFTER DISCHARGE Scheduled Alprazolam (Alprazolam), 1 TAB PO TID, (Reported) Atorvastatin Calcium (Atorvastatin Calcium), 1 TAB PO DAILY, (Reported) Carvedilol (Carvedilol), 1 TAB PO BID, (Reported) Docusate Sodium (Docqlace), 200 MG PO BID, (Reported) Ferrous Sulfate (Ferrous Sulfate), 325 MG PO BIDWM, (Reported) Furosemide (Furosemide), 20 MG PO BIDD, (Reported) Omeprazole (Prilosec), 40 MG OR DAILY, (Reported) Discontinued Medications Lisinopril (Lisinopril), 40 MG PO DAILY, (Reported) Losartan Potassium (Cozaar Tablet), 1 TAB PO DAILY Discharge Statement: "Patient was advised to return to the ER or call 911 if any headaches, dizziness, shortness of breath, chest pain, abdominal pain, bleeding, fevers, or worsening of medical condition. Patient was counseled about treatment plan, medications, possible side effects, patientverbalized understanding. All questions were answered to the best of my ability. This discharge took greater then 30 minutes in planning, reviewing documentation, counseling the patient, and discussing with other team members." ASSESSMENT ASSESSMENT Assessment Impacted subcapital left femoral neck fracture s/p ORIF Visit Coding STANDARD RES Billing Provider: GUSTAVO TEMPLE MD Date of Service if different f: Feb 17, 2025 Common Visit Codes: 62309-QPS/OBS DISCH DAY >30min MICHAEL PEDERSON RESIDENT Feb 17, 2025 14:49 GUSTAVO TEMPLE MD Feb 21, 2025 23:48
== END 2025-02-17 15:50 | DRG 480 ==
LOC: ER 17:52 → EDBD 17:52 → OVERFLOW 23:57 → CENTRAL 02-13 13:08 → TELE-CENTR 02-15 03:22
PROVIDERS: ADMIT Student in an Organized Health Care Education/Training Program; ATTEND Student in an Organized Health Care Education/Training Program
PROC: 0QS704Z Reposition Left Upper Femur with Internal Fixation Device, Open Approach (ICD-10-PCS; principal; 2025-02-14 08:35)
DX: S72.012A Unspecified intracapsular fracture of left femur, initial encounter for closed fracture (principal); N17.0 Acute kidney failure with tubular necrosis; I16.1 Hypertensive emergency; N18.4 Chronic kidney disease, stage 4 (severe); I50.42 Chronic combined systolic (congestive) and diastolic (congestive) heart failure; D63.1 Anemia in chronic kidney disease; E83.51 Hypocalcemia; I13.0 Hypertensive heart and chronic kidney disease with heart failure and stage 1 through stage 4 chronic kidney disease, or unspecified chronic kidney disease; E11.22 Type 2 diabetes mellitus with diabetic chronic kidney disease; E66.811 Obesity, class 1; N13.30 Unspecified hydronephrosis; I12.9 Hypertensive chronic kidney disease with stage 1 through stage 4 chronic kidney disease, or unspecified chronic kidney disease; N28.1 Cyst of kidney, acquired; E78.5 Hyperlipidemia, unspecified; Z88.6 Allergy status to analgesic agent; I25.10 Atherosclerotic heart disease of native coronary artery without angina pectoris; Z82.49 Family history of ischemic heart disease and other diseases of the circulatory system; Z87.891 Personal history of nicotine dependence; Z85.048 Personal history of other malignant neoplasm of rectum, rectosigmoid junction, and anus; Z90.49 Acquired absence of other specified parts of digestive tract; Z87.11 Personal history of peptic ulcer disease; Z95.1 Presence of aortocoronary bypass graft; W01.0XXA Fall on same level from slipping, tripping and stumbling without subsequent striking against object, initial encounter; Y93.89 Activity, other specified; Y92.89 Other specified places as the place of occurrence of the external cause; Y99.8 Other external cause status; Z68.24 Body mass index [BMI] 24.0-24.9, adult
CPT/HCPCS: 36415; 71045; 73502; 73700; 74176; 76000; 76775; 80048; 80053; 80061; 80307; 81001; 82550; 82570; 82962; 83036; 83880; 84156; 84300; 84484; 85025; 85610; 85730; 87086; 93005; 93306; 96361; 96374; 96375; 97110; 97116; 97163; 97530; G0378; J1815; J2250; J2405